=== PATIENT | male | born 1970 | race Caucasian/White ===

== ENCOUNTER 2018-08-28 06:46 | Emergency (ER) | payer MEDICAID ==
[~2018-08-28] VITALS: Ht 170.2 cm; Wt 60.2 kg
[~2018-08-28 06:46] MED LIST: BENA5TAB6 PO
[2018-08-28 06:49] VITALS: BP 199/119
[2018-08-28] MEDS ORDERED: proparacaine 0.5% ophthalmic drops 15ml EACHEYE ONE (07:00)
[2018-08-28] MEDS ORDERED: HYDR-3965 PO (07:23)
[2018-08-28] MEDS ORDERED: ciprofloxacin 0.3% 2.5ml ophthalmic solution RIGHTEYE SCH (08:00)
== END 2018-08-28 07:40 | disposition home or self-care (01) ==
LOC: ER 06:47
DX: T15.01XA Foreign body in cornea, right eye, initial encounter (principal); I10 Essential (primary) hypertension; F17.210 Nicotine dependence, cigarettes, uncomplicated; Z79.899 Other long term (current) drug therapy; W45.8XXA Other foreign body or object entering through skin, initial encounter; Y93.89 Activity, other specified; Y92.89 Other specified places as the place of occurrence of the external cause; Y99.8 Other external cause status
CPT/HCPCS: 65222; 99284

== ENCOUNTER 2024-05-11 08:05 | Emergency (ER) | payer MEDICAID, OTHER ==
[~2024-05-11] VITALS: Ht 175.3 cm; Wt 70.5 kg
[~2024-05-11 08:05] MED LIST changes: +BENA5TAB26 PO; -BENA5TAB6 PO
[2024-05-11 08:17] VITALS: BP 186/112; PULSE 82; RESP 14; O2SAT 96
== END 2024-05-11 08:42 | disposition home or self-care (01) ==
LOC: ER 08:06
DX: I10 Essential (primary) hypertension (principal); F15.90 Other stimulant use, unspecified, uncomplicated; Z79.899 Other long term (current) drug therapy
CPT/HCPCS: 99283

== ENCOUNTER 2025-06-03 12:56 | Emergency (ER) | payer SELFPAY ==
[~2025-06-03] VITALS: Ht 170.2 cm; Wt 66.9 kg
[2025-06-03 13:01] VITALS: TEMP 98.5
[2025-06-03 13:32] LABS: MEAN PLATELET VOLUME 8.1 FL (7.4-10.4); RED CELL DISTRIBUTION WIDTH 14.6 % (11.5-14.5)
[2025-06-03 13:47] LABS: CREATININE 1.04 MG/DL (0.60-1.10); TOTAL CARBON DIOXIDE 27.8 MMOL/L (24-32); eCRCL 74 ML/MIN; eGFR 74 ML/MIN
--- NOTE | 2025-06-03 14:03 | RADIOLOGY REPORT ---
History: inguinal hernia Comparison Study: None Technique: Serial axial images were performed through pelvis then reformatted in sagittal and coronal planes. Radiation Dose : CT Dose: CTDI volume is 11.4 mGy. Dose-length product is 243 mGy*cm Findings: Visualized bowel: Small bowel and colon are normal in caliber and distribution. The appendix is not visualized; however, no secondary findings of acute appendicitis identified. Ascites: Absent Lymphadenopathy: No pelvic or mesenteric lymphadenopathy. Pelvis Wall and Mesentery: Left inguinal hernia containing loops of bowel. No evidence of strangulati on at this time . Pelvic Organs: Prostate gland is enlarged. Musculoskeletal: No aggressive focal bony lesions, acute fractures or dislocation. Bladder: The bladder wall is thickened. There is a small droplet of air with in the bladder raising q uestion of prior catheterization. IMPRESSION: 1. .Left inguinal hernia containing large amount of bowel. There is no evidence of bowel obstruction or strangulation at this time. 2. Thickened bladder keller either due to bladder outlet obstruction from enlarged prostate and/ or cy stitis. END IMPRESSION:
--- NOTE | 2025-06-03 14:30 | Physician Documentation ---
History of Present Illness Chief Complaint: Abdominal Pain Stated Complaint: UNABLE TO URINATE Time Seen by MD: 14:01 Primary Medical Doctor: None HPI 54 yom h/o chronic inguinal hernia, urinary retention p/w abdominal pain. He was seen a few weeks ago for urinary retention, had colon placed at [facility]. Had another catheter replaced last week at [facility]. Has since pulled out his catheter. Now c/o increasing abdominal pain. His hernia does not bother him. Medication Reconciliation Allergies: Coded Allergies: No Known Allergies (Unverified , 09/29/14) Scheduled Benazepril HCl (Benazepril HCl), 2 TAB PO DAILY Past Medical History Past Medical History: Hypertension, MRSA Abscess Past Surgical History: other Alcohol Use: None Drug Use: methamphetamine Lives In: Home Occupation: employed Review of Systems All Other Systems at this time: Reviewed and Negative Constitutional: Reports: chills; Denies: fever Respiratory: Denies: shortness of breath, SOB with exertion Cardiovascular: Denies: chest pain Gastrointestinal: Reports: abdominal pain, nausea; Denies: vomiting, diarrhea, constipated, melena Genitourinary: Denies: flank pain Physical Exam Vital Signs: RN Vital Signs have been reviewed: Yes, Temperature: 98.5, Source: Temporal, Heart Rate: 95, Respiratory Rate: 21, BP: 184/112, Pulse Oximetry: 96, Weight: 66.900 Oxygen Flow Rate: 0 Physical Exam non toxic pulm ctab abdomen soft, suprapubic ttp neuro awake alert oriented. Progress Progress Note colon placed 500ml output Results/Orders Reviewed/noted all lab results: Yes (ua with gross infection) Results/Orders Vital Signs 06/03/25 06/03/25 13:01 14:18 Temp 98.5 Pulse 93 95 Resp 16 21 B/P (MAP) 156/96 184/112 (136) Pulse Ox 99 96 O2 Flow Rate 0 Laboratory Tests Test 06/03/25 13:24 06/03/25 14:10 White Blood Count 18.1 H Red Blood Count 4.50 L Hemoglobin 13.7 L Hematocrit 41.1 L Mean Corpuscular Volume 91.2 Mean Corpuscular Hemoglobin 30.5 Mean Corpuscular Hemoglobin Concent 33.4 Red Cell Distribution Width 14.6 H Platelet Count 386 Mean Platelet Volume 8.1 Neutrophils (%) (Auto) 85.2 H Lymphocytes (%) (Auto) 6.6 L Monocytes (%) (Auto) 7.3 Eosinophils (%) (Auto) 0.7 Basophils (%) (Auto) 0.2 Neutrophils # (Auto) 15.4 H Lymphocytes # (Auto) 1.2 Monocytes # (Auto) 1.3 H Eosinophils # (Auto) 0.1 Basophils # (Auto) 0.0 CBC Comment Sodium Level 134 L Potassium Level 3.5 Chloride Level 102 Carbon Dioxide Level 27.8 Anion Gap 4 L Blood Urea Nitrogen 19 H Creatinine 1.04 Estimated GFR/1.73 m2 74 BUN/Creatinine Ratio 18.3 Glucose Level 103 Calcium Level 8.5 Total Bilirubin 1.1 H Aspartate Amino Transf (AST/SGOT) 35 Alanine Aminotransferase (ALT/SGPT) 38 Alkaline Phosphatase 84 Total Protein 7.6 Albumin 2.9 L Globulin 4.7 H Albumin/Globulin Ratio 0.6 L Lipase 60 Chemistry Comments Urine Comment EKG/XRAY/CT/US/VASC/MRI CT : Impression CT abd pelvis no free fluid, enhanced bladder wall. No stone Medical Decision Making Differential Dx:Considerations: Include: Angina/NE, Appendicitis, Cholelithasis Departure Disposition: HOME / SELF CARE / HOMELESS Impression: Primary Impression: Pyelonephritis Additional Impression Text presents today with urinary retention. Elevated WBC. Vitals with mild tachycardia. Suspect early pyelo. Relief of pain with colon. Additional Instructions: You have a bladder infection. It should improve with antiobiotics and drainage with the catheter. Take your antibiotics starting tomorrow at lunch time to be taken every 6 hours. Return for fever or worsening abdominal pain. Referrals: MALIK JACOBS MD, CHRISTOPHER E MD Prescriptions Cephalexin (Cephalexin) 500 Mg Capsule 1 CAP PO Q6H for 10 Days, #40 CAP Prov: MEGAN MELO MD 06/03/25 Signature Scribe Signature: na Attestation: MEGAN Kauffman MD Jun 03, 2025 14:30
[2025-06-03 14:35] LABS: LEUKOCYTE ESTERASE ,URINE MODERATE (Neg); NITRITES, URINE POSITIVE (Neg); OCCULT BLOOD,URINE LARGE (Neg)
[2025-06-03 14:39] LABS: UA COLLECTION TYPE NON-SPECIFIED
[2025-06-03 14:40] LABS: MUCUS STRANDS NONE SEEN /LPF (Neg); SQUAMOUS EPITHELIAL CELL,UR NONE SEEN /LPF (FEW)
[2025-06-03] MEDS: normal saline 1000ml 1,000 ML IV ONE (15:47)
[2025-06-03] MEDS: LidoCAINE 2% Topical Jelly 11mL syringe (UROJET) TOP ONE (15:47)
[2025-06-03] MEDS: CefTRIAXone 2gm/D5W 50ml BAG 50 ML IV ONE (15:47)
[2025-06-03] MEDS ORDERED: CEPH500C81 PO (16:30)
[2025-06-03 18:19] VITALS: BP 198/103; PULSE 88; RESP 16; O2SAT 98
== END 2025-06-03 18:22 | disposition home or self-care (01) ==
LOC: ER 12:57
DX: N12 Tubulo-interstitial nephritis, not specified as acute or chronic (principal); I10 Essential (primary) hypertension; F15.90 Other stimulant use, unspecified, uncomplicated; Z79.899 Other long term (current) drug therapy
CPT/HCPCS: 36415; 51702; 72192; 80053; 81001; 83605; 83690; 85025; 87040; 87088; 96365; 99285; A4314; J0696; J7030; A4358; A5200

== ENCOUNTER 2025-06-13 18:44 | Emergency (ER) | payer OTHER ==
[~2025-06-13] VITALS: Ht 170.2 cm; Wt 63.0 kg
[~2025-06-13 18:44] MED LIST changes: +CEPH500C81 PO
--- NOTE | 2025-06-13 18:50 | Physician Documentation ---
History of Present Illness ~ Stated Complaint: "I NEED TO HAVE ANOTHER CATHETER PUT IN" Time Seen by MD: 19:07 OK to notify your PCP?: Yes Primary Medical Doctor: None Source: patient, RN/, RN notes reviewed, old records Mode of Arrival: POV Exam Limitations: no limitations HPI 54-year-old male returns for urinary retention. He states that he had a Mckenzie catheter placed 10 days ago here for urinary retention and pyelonephritis. He took his catheter out 2 days ago but now has not been able to urinate since this morning. He does not have a urologist yet. HPI by Dr. Hensley: BED 6 This patient is a 54 y/o male who presents to ED with chief complaint of trouble urinating. Patient states that he believes this may be due to his hernia, as it has been coming out every time he tries to urinate and causes him severe pain. Patient states he did urinate normally this morning. He also notes history of a testicular mass; states that he was seen for it by a urologist who told him he likely had cancer, however he never had it biopsied. Patient states that he was then seen at [facility], where he was told he had a left sided inguinal hernia. Patient notes that he does have a history of urinary retention, stating he previously had a catheter which was removed two days ago. Patient denies any other associated symptoms at this time. Patient denies any other alleviating or exacerbating factors. Medication Reconciliation Allergies: Coded Allergies: No Known Allergies (Unverified , 06/13/25) Scheduled Benazepril HCl (Benazepril HCl), 2 TAB PO DAILY Cephalexin (Cephalexin), 1 CAP PO Q6H Sulfamethoxazole/Trimethoprim (Bactrim Ds Tablet), 1 TAB PO Q12H Past Medical History Past Medical History: Hypertension, Hernia, MRSA Abscess Past Surgical History: other Other Past Surgical History: Splenectomy Smoking Status: Never smoker Alcohol Use: None Drug Use: methamphetamine Lives In: Home Occupation: employed Review of Systems All Other Systems at this time: Reviewed and Negative Physical Exam Vital Signs: RN Vital Signs have been reviewed: Yes Pulse Oximetry Reflects: adequate oxygenation Physical Exam General: Alert, no distress. HEENT: No injection, moist mucous membranes. Neck: Full range of motion. Respiratory: No respiratory distress, equal chest rise and fall. Chest: No accessory muscle use. Cardiovascular: Regular rate and rhythm. Gastrointestinal: Nondistended. Extremities: Normal range of motion, no deformity. Neurologic: Oriented x4. Psychiatric: Normal mood and affect. Skin: Normal color, warm and dry. EXAM BELOW BY DR. HENSLEY: General: The patient is well developed, well nourished, nontoxic appearing and is in no acute distress. Skin: [place], warm and dry with no rashes. HEENT: Head was normocephalic and atraumatic. Eyes - pupils equal, round, reactive to light and accommodation. Extraocular movements were intact. Conjunctivae were nonicteric. The mouth and oropharynx were clear with moist mucous membranes. There were no pharyngeal exudates or erythema. Neck: Supple and nontender. There was no jugular venous distention, lymphadenopathy, thyromegaly or masses. Chest: Clear to auscultation bilaterally without wheezes, rales or rhonchi. No accessory muscle use. No dullness to percussion. Heart: Rate regular and rhythmic. S1, S2. No murmurs. Palpation of the chest wall was normal. No rubs or thrills. Abdomen: Abdomen otherwise soft, nontender and nondistended. Positive bowel evelin nds. No guarding or rebound. No hepatosplenomegaly or palpable masses. : Large inguinal hernia to left testicle, reducible. Extremities: No cyanosis, clubbing or edema. The patient moves all extremities. Pulses were equal and symmetric. Neurologic: Motor and sensation grossly intact. A & O x4. Psychologic: The patient was oriented to person, place and time. Progress Progress Note 8:[address] Jacobs was at bedside with the patient outpatient workup Results/Orders Reviewed/noted all lab results: Yes Results/Orders Orders - AIDEN HENSLEY MD Us Testic/W/Duplex (06/13/25 19:08) Completed Orders - AIDEN HENSLEY MD Us Testic/W/Duplex (06/13/25 19:08) Sulfamethox/Trimetho. Ds Tab (Septra Ds (06/13/25 21:15) * (A) Mckenzie- Protocol * Q12H@,19 (06/13/25 21:14) Lidocaine 2% Jelly 11ml Syr (Glydo-Lidoc (06/13/25 21:15) Medications Received in ER Medications (Trade) Dose Ordered Sig/Yazan Route PRN Reason Start Time Stop Time Status Last Admin Dose Admin (Septra DS tab) 1 tab ONCE ONCE PO 06/13/25 21:15 06/13/25 21:16 DC 06/13/25 21:26 1 TAB (GLYDO-Lidocaine 2% Topical Jelly 11mL syringe) 1 applic ONCE ONCE TOP 06/13/25 21:15 06/13/25 21:17 DC 06/13/25 21:26 1 APPLIC Vital Signs 06/13/25 06/13/25 06/13/25 06/13/25 18:45 19:00 20:35 21:50 Temp 97.9 98.1 Pulse 101 84 80 Resp 16 16 18 18 B/P (MAP) 186/110 157/93 (114) 126/80 Pulse Ox 99 99 99 O2 Flow Rate 0 Laboratory Tests Test 06/13/25 20:24 Urine Specimen Description Non-specified Urine Color Yellow Urine Clarity Cloudy Urine pH 6.5 Urine Specific [place] 1.020 Urine Protein Trace Urine Glucose (UA) 100 H Urine Ketones Negative Urine Occult Blood Trace-intact Urine Nitrite Negative Urine Bilirubin Negative Urine Urobilinogen 0.2 Urine Leukocyte Esterase Moderate H Urine RBC 3-10 Urine WBC 30-50 H Urine Squamous Epithelial Cells Few Urine Bacteria 1+ Urine Mucus Few Urine Culture Indicated Indicated Volume Urine Centrifuged 10 ml Urine Comment Microbiology Date/Time Source Procedure Growth Status 06/13/25 20:38 Urine Nonspecified Urine Culture - Preliminary Culture received. Resulted Re-Evaluation Re-Evaluation : Re-Evaluation: Improved Progress Patient was seen and examined. Patient is given reassurance. Patient had multiple issues. One is urinary retention in part due to chronic inguinal hernia and pain. The patient's other issue is his left inguinal hernia that is generally reducible. We are unable to reduce it in the ER but his pain is much improved he states usually at home he is able to get it back in the problem for him is that he still has pain and can not urinate. There was 3rd issue of a mass that he thought resolved but apparently he has had this testicular mass for years that he has not followed up. Patient saw our general surgeon we will schedule surgery on the outpatient basis and will follow up with Urology regarding potential testicular mass. Cat scan showed chronic cystitis and bladder wall thickening consistent with recurrent episodes of inflammation. Patient's UA came back again positive for a UTI. Patient is leukocyte esterase is moderate 3-10 RBCs and 30-50 WBCs. Patient is given Bactrim and a prescription for the same. Outpatient information was provided for the patient. EKG/XRAY/CT/US/VASC/MRI Ultrasound : Interpreted By: radiologist Ultrasound of: testicular Impression [address] [address] ULTRASOUND Patient: DAISY WAGONER Medical Record: [id number] JOSEPH MOUNT STERLING : 1970, Age: 54 Sex: Male Location: ER Patient Status: [facility] ER Service Date/Time: 06/13/251907 Ordering Physician: AIDEN HENSLEY MD Exam: US TESTIC/W/DUPLEX SCROTAL ULTRASOUND REASON FOR EXAM: painful testicle COMPARISON: None TECHNIQUE: Real-time sector scans and duplex color flow Doppler imaging of the scrotal contents was performed. FINDINGS: The right testicle measures 3.4 x 2.5 x 3.3 cm. Expected color and spectral doppler flow is identified within the right testicle. There is a 3.1 x 4.0 x 3.2 cm heterogeneously hypoechoic and vascular right testicular mass. The left testicle measures 4.1 x 2.3 x 3.0 cm. There is prominence of the mediastinum testis, nonspecific. There is a heterogeneously hypoechoic 0.5 cm mass within the right epididymis that appears to extend from the testicular mass. The right epididymis is hyperemic. The left epididymis is within normal limits and without hyperemia. No varicocele is identified. There is small bilateral hydrocele, left greater than right. There is a large amount of bowel herniating into the scrotum making evaluation difficult. IMPRESSION: Right testicular mass extending into the epididymis. Small bilateral hydrocele, left greater than right. Large amount of bowel herniating into the scrotum making evaluation difficult. Electronically Signed by:CALIXTO BORREGO MD Date & Time: 06/13/252017 Dictated by: CALIXTO BORREGO MD Dictation date and time: 06/13/252017 Primary Care Provider: NO PRIMARY CARE PROVIDER cc: AIDEN HENSLEY MD ~ EDMD DR. HENSLEY REVIEWED IMAGES AND AGREES WITH ABOVE FINDINGS. Medical Decision Making Additional info obtained from: old records Genital Diff Dx:Considerations: Include: Abscess, Balanitis, Balanoposthitis, Cellulitis, Epididymitis, Hydrocele, Inguinal hernia, Prostatitis, Urinary retention, Urethritis, UTI, Other Departure Time of Disposition: 20:09 Disposition: HOME / SELF CARE / HOMELESS Impression: Primary Impression: Urinary retention Additional Impressions: Testicular mass Left inguinal hernia Acute urinary tract infection Condition: Stable Discharge Instructions: Acute Urinary Retention, Male, Inguinal Hernia, Adult Additional Instructions: Please follow up with surgeon, Dr. Jacobs regarding your hernia, and urologist, Dr. Gregory for your testicular mass. Referrals: NO PRIMARY CARE PROVIDER (PCP) MALIK JACOBS MD, TIFFANY A MD Prescriptions Sulfamethoxazole/Trimethoprim (Bactrim Ds Tablet) 800 Mg-160 Mg Tablet 1 TAB PO Q12H for 10 Days, #20 TAB Prov: AIDEN HENSLEY MD 06/13/25 Education Educated: Patient Educated regarding: diagnosis, treatment, need for follow up Additional Comment Medical Screen Exam This patient recieved a medical screening examination. After reviewing the mike courtney's medical complaints with presenting symptoms and performing an appropriate physical examination, it was determined that no immediate life- threatening emergency medical condition is present. This individual is also not a women having contractions. Signature Scribe Signature: Scribed for Aiden Hensley MD by Vanda Coffey . 06/13/25 19:58 Attestation: The note accurately reflects work and decisions made by me.Aiden Hensley MD 06/13/25 21:17 PATRICA GUZMÁN [employer] Jun 13, 2025 18:50 AIDEN HENSLEY MD Jun 13, 2025 19:59
--- NOTE | 2025-06-13 20:20 | RADIOLOGY REPORT ---
SCROTAL ULTRASOUND REASON FOR EXAM: painful testicle COMPARISON: None TECHNIQUE: Real-time sector scans and duplex color flow Doppler imaging of the scrotal contents was performed. FINDINGS: The right testicle measures 3.4 x 2.5 x 3.3 cm. Expected color and spectral doppler flow is identifie d within the right testicle. There is a 3.1 x 4.0 x 3.2 cm heterogeneously hypoechoic and vascular ri ght testicular mass. The left testicle measures 4.1 x 2.3 x 3.0 cm. There is prominence of the mediastinum testis, nonspec ific. There is a heterogeneously hypoechoic 0.5 cm mass within the right epididymis that appears to extend from the testicular mass. The right epididymis is hyperemic. The left epididymis is within normal muj[place] its and without hyperemia. No varicocele is identified. There is small bilateral hydrocele, left greater than right. There is a large amount of bowel herniating into the scrotum making evaluation difficult. IMPRESSION: Right testicular mass extending into the epididymis. Small bilateral hydrocele, left greater than right. Large amount of bowel herniating into the scrotum making evaluation difficult.
[2025-06-13 20:31] LABS: LEUKOCYTE ESTERASE ,URINE MODERATE (Neg); NITRITES, URINE NEGATIVE (Neg); OCCULT BLOOD,URINE TRACE-INTACT (Neg)
[2025-06-13 20:33] LABS: UA COLLECTION TYPE NON-SPECIFIED
[2025-06-13 20:37] LABS: MUCUS STRANDS FEW /LPF (Neg); SQUAMOUS EPITHELIAL CELL,UR FEW /LPF (FEW)
[2025-06-13] MEDS ORDERED: SULF1TAB49 PO (21:15)
[2025-06-13] MEDS: LidoCAINE 2% Topical Jelly 11mL syringe (UROJET) TOP ONE (21:26)
[2025-06-13] MEDS: sulfamethoxazole/trimethoprim DS (800/160mg) tablet PO ONE (21:26)
[2025-06-13 21:50] VITALS: BP 126/80; PULSE 80; RESP 18; TEMP 98.1; O2SAT 99
== END 2025-06-13 21:54 | disposition home or self-care (01) ==
LOC: ER 18:45
DX: R33.9 Retention of urine, unspecified (principal); K40.90 Unilateral inguinal hernia, without obstruction or gangrene, not specified as recurrent; N43.3 Hydrocele, unspecified; N39.0 Urinary tract infection, site not specified; I10 Essential (primary) hypertension; F15.90 Other stimulant use, unspecified, uncomplicated; Z79.899 Other long term (current) drug therapy
CPT/HCPCS: 51702; 76870; 81001; 87088; 93976; 99284; A4314; A4338; A4358; A5200; C1758

== ENCOUNTER 2025-06-24 04:45 | Emergency (ER) | payer OTHER ==
[~2025-06-24] VITALS: Ht 170.2 cm; Wt 60.0 kg
[~2025-06-24 04:45] MED LIST changes: -CEPH500C81 PO; +SULF1TAB49 PO
--- NOTE | 2025-06-24 06:22 | Physician Documentation ---
History of Present Illness General Chief Complaint: Urinary Symptoms Stated Complaint: URINARY COMPLICATIONS Time Seen by MD: 06:06 Primary Medical Doctor: None Mode of Arrival: POV, Ambulatory History of Present Illness Initial Comments 54-year-old male returns for urinary retention. He states that he had a Mckenzie catheter placed 10 days ago here for urinary retention and UTI. He took his catheter out 4 days ago but now has not been able to urinate since this morning. He does not have a urologist yet. This patient is a 54 y/o male who presents to ED with chief complaint of trouble urinating. Patient states that he believes this may be due to his hernia, as it has been coming out every time he tries to urinate and causes him severe pain. Patient states he did urinate normally this morning. He also notes history of a testicular mass; states that he was seen for it by a urologist who told him he likely had cancer, however he never had it biopsied. Patient states that he was then seen at [facility], where he was told he had a left sided inguinal hernia. Patient notes that he does have a history of urinary retention, stating he previously had a catheter which he removed 4 days ago. Patient denies any other associated symptoms at this time. Patient denies any other alleviating or exacerbating factors. Medication Reconciliation Allergies: Coded Allergies: No Known Allergies (Unverified , 06/13/25) Scheduled Benazepril HCl (Benazepril HCl), 2 TAB PO DAILY Discontinued Medications Sulfamethoxazole/Trimethoprim (Bactrim Ds Tablet), 1 TAB PO Q12H Discontinued Reason: Auto Discontinued Past Medical History Past Medical History: Hypertension, Hernia, MRSA Abscess Past Surgical History: other Other Past Surgical History: Splenectomy Smoking: Cigarettes Alcohol Use: None Drug Use: methamphetamine Lives In: Home Occupation: employed Review of Systems ROS Constitutional: Denies chills, fatigue, fever, weight gain or weight loss. HEENT: Denies hearing loss, sinus pressure or visual changes. Respiratory: Denies cough, shortness of breath or wheezing. Cardiovascular: Denies chest pain, pain while walking (claudication), edema or palpitations. Gastrointestinal: Denies abdominal pain, blood in stool, constipation, diarrhea, heartburn, loss of appetite, nausea or vomiting. Genitourinary: Urinary retention and dysuria. Metabolic/Endocrine: Denies cold intolerance, heat intolerance, excessive thirst (polydipsia) or excessive hunger (polyphagia). Neurological: Denies dizziness, extremity numbness, extremity weakness, headaches, seizures or tremors. Psychiatric: Denies anxiety or depression. Integumentary: Denies breast discharge, breast lump, hives, mole change(s), rash or skin lesion. Musculoskeletal: Denies back pain, joint pain, joint swelling or neck pain. Hematologic: Denies easily bleeding, easily bruises, lymphedema or issues with blood clots. Immunologic: Denies food allergies or seasonal allergies. Physical Exam Physical Exam Vital Signs: Temperature: 98.1, Source: Temporal, Heart Rate: 82, Respiratory Rate: 18, Pulse Oximetry: 99, Weight: 60.000 Oxygen Flow Rate: 0 Physical Exam Physical Exam Vitals and nursing note reviewed. Constitutional: General: Patient is awake, alert, oriented x 4 in no acute distress and well appearing. Speech is clear and lucid. Appearance: Normal appearance. Patient is not ill-appearing, toxic-appearing or diaphoretic. HENT: Head: Normocephalic and atraumatic. Mouth/Throat: Mouth: Mucous membranes are moist. Pharynx: Oropharynx is clear. Eyes: General: No scleral icterus. Extraocular Movements: Extraocular movements intact. Pupils: Pupils are equal, round, and reactive to light. Neck: Supple, no Kernig or Brudzinski sign. Cardiovascular: Rate and Rhythm: Normal rate and regular rhythm. Heart sounds: No murmur heard. Pulmonary: Effort: No respiratory distress. Breath sounds: No wheezing, rhonchi or rales. Abdominal: General: Left sided inguinal hernia, incarcerated. Patient thinks he may be able to reduce it. Palpations: There is no fluid wave, hepatomegaly or mass. Tenderness: There is no abdominal tenderness. There is no guarding. Musculoskeletal: General: No swelling or deformity. Skin: Coloration: Skin is not jaundiced. Findings: No erythema or rash. Neurological: Mental Status: Patient is alert. Progress Results/Orders Results/Orders Orders - NETTA VAUGHAN MD Bladder Scan (06/24/25 ) * (A) Mckenzie- Protocol * Q12H@07,19 (06/24/25 06:23) Completed Orders - NETTA VAUGHAN MD Lidocaine 2% Jelly 11ml Syr (Glydo-Lidoc (06/24/25 06:20) Lidocaine 2% Jelly 11ml Syr (Glydo-Lidoc (06/24/25 06:25) Medications Received in ER Medications (Trade) Dose Ordered Sig/Yazan Route PRN Reason Start Time Stop Time Status Last Admin Dose Admin (GLYDO-Lidocaine 2% Topical Jelly 11mL syringe) 1 applic ONCE ONCE TOP 06/24/25 06:20 06/24/25 06:21 DC 06/24/25 06:23 1 APPLIC Vital Signs 06/24/25 06/24/25 06/24/25 04:53 05:33 06:43 Temp 98.1 98.4 Pulse 82 77 Resp 18 15 B/P (MAP) 163/90 (114) Pulse Ox 99 97 O2 Flow Rate 0 0 Laboratory Tests Test 06/24/25 06:30 Urine Specimen Description Mckenzie cath Urine Color Yellow Urine Clarity Cloudy Urine pH 6.5 Urine Specific [place] 1.020 Urine Protein Trace Urine Glucose (UA) 100 H Urine Ketones Negative Urine Occult Blood Trace-intact Urine Nitrite Positive H Urine Bilirubin Negative Urine Urobilinogen 0.2 Urine Leukocyte Esterase Moderate H Urine RBC 0-2 Urine WBC Tntc H Urine Squamous Epithelial Cells None seen Urine Bacteria 2+ Urine Culture Indicated Indicated Volume Urine Centrifuged 10 ml Urine Comment Medical Decision Making Findings Bladder scan showed greater than 400 cc residual. We are going to put a Mckenzie catheter in. The patient is attempting to reduce his inguinal hernia on the left. Urinalysis is consistent with infection. Microbiology report from 06/13/2025 showed mixed loi and therefore sensitivities were not performed. 7:38 a.m.: The patient has apparently eloped from the department. Of note, the patient apparently left a 50 dollar bill on the [employer]. I gave this to our nursing accounting clerks supervisor. Departure Disposition: 07 LEFT AWOL/ELOPED Impression: Primary Impression: Urinary retention Additional Impressions: Eloped from emergency department UTI (urinary tract infection) Condition: Stable Referrals: NO PRIMARY CARE PROVIDER (PCP) Signature Scribe Signature: . Attestation: . NETTA VAUGHAN MD Jun 24, 2025 06:22
[2025-06-24] MEDS: LidoCAINE 2% Topical Jelly 11mL syringe (UROJET) TOP ONE ×2 (06:23→06:45)
[2025-06-24 06:43] VITALS: BP 163/90; PULSE 77; RESP 15; TEMP 98.4; O2SAT 97
[2025-06-24 06:43] LABS: LEUKOCYTE ESTERASE ,URINE MODERATE (Neg); NITRITES, URINE POSITIVE (Neg); OCCULT BLOOD,URINE TRACE-INTACT (Neg)
[2025-06-24 06:49] LABS: UA COLLECTION TYPE FOLEY CATH
[2025-06-24 06:51] LABS: SQUAMOUS EPITHELIAL CELL,UR NONE SEEN /LPF (FEW)
== END 2025-06-24 07:41 | disposition left against medical advice (07) ==
LOC: ER 04:45
DX: N39.0 Urinary tract infection, site not specified (principal); I10 Essential (primary) hypertension; F15.90 Other stimulant use, unspecified, uncomplicated
CPT/HCPCS: 51702; 51798; 81001; 87088; 87186; 99284; A4314

== ENCOUNTER 2025-07-23 01:42 | Emergency (ER) | payer SELFPAY ==
[~2025-07-23] VITALS: Ht 170.2 cm; Wt 73.5 kg
[~2025-07-23 01:42] MED LIST changes: -SULF1TAB49 PO
[2025-07-23 01:49] VITALS: PULSE 85; TEMP 97.1
[2025-07-23] MEDS: LidoCAINE 2% Topical Jelly 11mL syringe (UROJET) TOP ONE (02:20)
--- NOTE | 2025-07-23 02:22 | Physician Documentation ---
History of Present Illness General Chief Complaint: Urinary Symptoms Stated Complaint: CATHITER ISSUES Time Seen by MD: 02:13 Primary Medical Doctor: None History of Present Illness Initial Comments This is a 54-year-old gentleman who had an indwelling Mckenzie catheter for acute urinary retention, pulled it out a month ago on his own because hospitalist coming out of it presents today with a request of Mckenzie catheter placement due to acute urinary retention. He feels that his hernia is interfering with his ability to urinate. He does report that he has large hernia in his scrotum. Denies any pain in his abdomen. Denies chest pain or difficulty breathing. Denies any fever or chills. Does report pain with the urination. Medication Reconciliation Allergies: Coded Allergies: No Known Allergies (Unverified , 07/23/25) Scheduled Benazepril HCl (Benazepril HCl), 2 TAB PO DAILY Past Medical History Past Medical History: Hypertension, Hernia, MRSA Abscess Past Surgical History: other Other Past Surgical History: Splenectomy Smoking: Cigarettes Alcohol Use: None Drug Use: methamphetamine Lives In: Home Occupation: employed Review of Systems ROS 10 point review of systems was performed and unless noted above in HPI is negative for acute process/complaint. Physical Exam Physical Exam Vital Signs: Temperature: 97.1, Source: Temporal, Heart Rate: 85, Respiratory Rate: 18, BP: 168/99, Pulse Oximetry: 98, Weight: 73.500 Physical Exam Physical examination: GENERAL: Awake, alert, oriented, GCS 15, no apparent distress, non-toxic appearing, answers questions, follows commands appropriately. HEENT: Atraumatic, normocephalic, pupils equal, extraocular muscles intact Active gross movements, sclerae anicteric, mucus membranes moist, no stridor. NECK: Midline, no JVD CARDIOVASCULAR: Good skin perfusion without evidence of pallor, mottling. PULMONARY: Nonlabored, symmetric chest rise, no audible wheezing, no accessory muscle use, no respiratory distress, speaking in full sentences. GASTROINTESTINAL: Not distended. NEUROLOGIC: Lucid with normal mental status. Normal facial symmetry. Moves all extremities symmetrically and with purpose. No truncal ataxia. Speech is fluid without evidence of dysarthria or aphasia, no focal deficits appreciated. EXTREMITIES: Acute deformities Skin: warm, dry PSYCHIATRIC: Normal affect, normal insight, normal concentration. Focused exam: [] Progress Results/Orders Results/Orders Orders - JAVIER BOOGIE DO * (A) Mckenzie- Protocol * Q12H@07,19 (07/23/25 02:17) Cult Urine + [address] (07/23/25 02:45) Completed Orders - JAVIER BOOGIE DO Lidocaine 2% Jelly 11ml Syr (Glydo-Lidoc (07/23/25 02:20) Cbc/Diff (07/23/25 02:17) MG (07/23/25 02:17) CMP (07/23/25 02:17) Ethanol (07/23/25 02:18) Drug Screen, Urine (07/23/25 02:18) Ua W/Microscopic, Cult If Ind (07/23/25 01:48) Medications Received in ER Medications (Trade) Dose Ordered Sig/Yazan Route PRN Reason Start Time Stop Time Status Last Admin Dose Admin (GLYDO-Lidocaine 2% Topical Jelly 11mL syringe) 1 applic ONCE ONCE TOP 07/23/25 02:20 07/23/25 02:21 DC 07/23/25 02:20 1 APPLIC Vital Signs 07/23/25 07/23/25 01:49 02:34 Temp 97.1 Pulse 85 Resp 18 14 B/P (MAP) 168/99 Pulse Ox 98 Laboratory Tests Test 07/23/25 01:48 07/23/25 02:27 Urine Specimen Description Cln catch midstream Urine Color Yellow Urine Clarity Cloudy Urine pH 8.0 Urine Specific [place] 1.015 Urine Protein 30 H Urine Glucose (UA) Negative Urine Ketones Negative Urine Occult Blood Small Urine Nitrite Negative Urine Bilirubin Negative Urine Urobilinogen 0.2 Urine Leukocyte Esterase Large H Urine RBC 3-10 Urine WBC Tntc H Urine Squamous Epithelial Cells Few Urine Bacteria 4+ Urine Culture Indicated Indicated Volume Urine Centrifuged 10 ml Urine Comment Urine Opiates Screen Negative Urine Methadone Screen Negative Urine Fentanyl Screen Negative Urine Barbiturates Screen Negative Urine Phencyclidine Screen Negative Urine Amphetamines Screen Positive Urine Benzodiazepines Screen Negative Urine Cocaine Screen Negative Urine Cannabinoids Screen Negative Drug Screen Comment White Blood Count 6.1 Red Blood Count 4.33 L Hemoglobin 13.3 L Hematocrit 39.3 L Mean Corpuscular Volume 90.8 Mean Corpuscular Hemoglobin 30.8 Mean Corpuscular Hemoglobin Concent 33.9 Red Cell Distribution Width 14.0 Platelet Count 279 Mean Platelet Volume 8.6 Neutrophils (%) (Auto) 57.5 Lymphocytes (%) (Auto) 22.7 Monocytes (%) (Auto) 14.4 H Eosinophils (%) (Auto) 4.6 Basophils (%) (Auto) 0.8 Neutrophils # (Auto) 3.5 Lymphocytes # (Auto) 1.4 Monocytes # (Auto) 0.9 Eosinophils # (Auto) 0.3 Basophils # (Auto) 0.0 CBC Comment Platelet Estimate Normal Large Platelets Few Red Blood Cell Morphology Normal Basophilic Stippling Sodium Level 139 Potassium Level 3.4 L Chloride Level 105 Carbon Dioxide Level 28.3 Anion Gap 6 L Blood Urea Nitrogen 21 H Creatinine 1.31 H Estimated GFR/1.73 m2 57 BUN/Creatinine Ratio 16.0 Glucose Level 92 Calcium Level 8.3 L Magnesium Level 2.0 Total Bilirubin 0.5 Aspartate Amino Transf (AST/SGOT) 30 Alanine Aminotransferase (ALT/SGPT) 40 Alkaline Phosphatase 81 Total Protein 6.8 Albumin 2.9 L Globulin 3.9 Albumin/Globulin Ratio 0.7 L Chemistry Comments Ethyl Alcohol Level < 10 Medical Decision Making Findings Facility Status: ED Holds, [facility] process The plan was discussed with the patient, who demonstrates clear understanding of the plan and is in agreement with the plan unless otherwise noted in the chart. All questions have been answered, all concerns were addressed unless otherwise documented. I was available throughout their ED stay for frequent reassessment and questions. Differential Diagnoses (considered and possible or likely): [Acute urinary retention secondary to enlarged prostate, less likely secondary to his hernia, urinary tract infection, pyelitis, pyelonephritis] ??Differential Diagnoses (considered and unlikely, not requiring evaluation currently): [Unlikely acute intra-abdominal process requiring surgical intervention] MDM Data Please see [facility] for the following: Independent Historians and external Records Review. Historian: [Patient] Independent Historians: ?[Record review] Medication Management: [Reviewed medication list] Social History and determinants: [Reviewed] Please see the body of the note for the following: Any independent interpretations of ECG, imaging studies. All vitals signs/haemodynamics, ordered tests were independently reviewed and interpreted by myself. Nursing triage complaint and vitals reviewed, additional nursing notes were reviewed as available and I agree unless otherwise noted or documented in contradiction in the chart Vital Signs: Independently reviewed Labs: Independently interpreted Imaging: Independently interpreted Old Medical Records: Independently reviewed, see HPI for relevant summary and information Pulse Oximetry: [98%] interpreted as [normal on room air] by me Additionally notably showing: [Hemodynamics reviewed. The patient isn't febrile, not tachycardic, no evidence of hypotension respiratory distress. Laboratory studies reviewed. CBC normal, no leukocytosis. Normal hemoglobin. Normal platelets. Chemistry shows ERIBERTO versus CKD with a mild creatinine elevation. Ethanol is negative. Urine drug screen is positive for methamphetamines. UA is obviously positive for urinary tract infection.] Tests considered but not ordered include: [Imaging has been considered, however he has no pain, no discoloration, hernias reducible] Social Determinants of Health Impact: Patient was evaluated in [facility] [place] to healthcare due to below par ratio of patient to medical providers. [] Comorbid Conditions Impacting Present Evaluation and Care/Treatment: [Known inguinal hernia] Management Discussions with other Healthcare Providers: [None] Treatment and Disposition Medication Management (Given or considered): []. See EMR for details Consideration for Hospitalization/Escalation/Deescalation of Care: Admission for observation has been considered, [however the patient is able to tolerate p.o., their symptoms are controlled, they are able to rely on oral medications, and their chief complaint/diagnosis can be managed on outpatient basis.] ?ED Course:?[No clinical deterioration] ?Shared decision making:?[Patient is hemodynamically stable for discharge home with follow with their primary care provider. [ ] Specific and cautious return precautions provided and discussed with full understanding. Any incidental findings were also discussed and follow up recommendations given. [] All questions answered. Patient/family were able to verbalize back return precautions. Patient/family agree to plan. Copies of imaging and laboratory studies were provided.] Code status:?FULL Please see the full Electronic Medical Record for full details of nursing documentation, medications list, other records of complete past medical history and conditions, vital signs, laboratory studies, and any radiologic study interpretations by radiologists. Portions of this note were completed using [employer] dictation software and as a result there may exist minor errors in spelling. I have reviewed elements of past family and social history and agree as included in note. Departure Disposition: HOME / SELF CARE / HOMELESS Impression: Primary Impression: Urinary retention Additional Impression: UTI (urinary tract infection) Condition: Stable Discharge Instructions: Urinary Tract Infection, Adult Referrals: NO PRIMARY CARE PROVIDER (PCP) Prescriptions Amox Tr/Potassium Clavulanate (Augmentin 875-125 Tablet) 1 Each Tablet 1 TAB PO Q12H for 14 Days, #28 TAB Prov: JAVIER BOOGIE DO 07/23/25 Education Educated: Patient Educated regarding: diagnosis, treatment, prognosis, need for follow up Signature Scribe Signature: No scribe Attestation: Date: Jul 23, 2025 Time: 02:21 This note accurately reflects clinical decisions, work performed by myself, Javier Boogie, JAVIER ESCALANTE DO Jul 23, 2025 02:21
[2025-07-23 02:32] LABS: LEUKOCYTE ESTERASE ,URINE LARGE (Neg); NITRITES, URINE NEGATIVE (Neg); OCCULT BLOOD,URINE SMALL (Neg)
[2025-07-23 02:39] LABS: UA COLLECTION TYPE CLN CATCH MIDSTREAM
[2025-07-23 02:42] LABS: MEAN PLATELET VOLUME 8.6 FL (7.4-10.4); RED CELL DISTRIBUTION WIDTH 14.0 % (11.5-14.5)
[2025-07-23 02:45] LABS: SQUAMOUS EPITHELIAL CELL,UR FEW /LPF (FEW)
[2025-07-23 02:47] LABS: CREATININE 1.31 MG/DL (0.60-1.10); ETHANOL < 10 MG/DL (<10); TOTAL CARBON DIOXIDE 28.3 MMOL/L (24-32); eCRCL 59 ML/MIN; eGFR 57 ML/MIN
[2025-07-23 03:03] LABS: URINE AMPHETAMINE SCREEN POSITIVE (Neg); URINE BARBITUATE SCREEN NEGATIVE (Neg); URINE BENZODIAZEPINES SCREEN NEGATIVE (Neg); URINE CANNABINOID SCREEN NEGATIVE (Neg); URINE COCAINE SCREEN NEGATIVE (Neg); URINE METHADONE SCREEN NEGATIVE (Neg); URINE OPIATE SCREEN NEGATIVE (Neg); URINE PHENCYCLIDINE SCREEN NEGATIVE (Neg)
[2025-07-23 03:05] LABS: PLATELET ESTIMATE NORMAL
[2025-07-23 03:08] LABS: LARGE PLATELETS FEW
[2025-07-23] MEDS ORDERED: AMOX-117 PO (03:38)
[2025-07-23 04:10] VITALS: BP 140/86; RESP 14; O2SAT 97
== END 2025-07-23 04:11 | disposition home or self-care (01) ==
LOC: ER 01:42
DX: R33.9 Retention of urine, unspecified (principal); N39.0 Urinary tract infection, site not specified; I10 Essential (primary) hypertension; F17.210 Nicotine dependence, cigarettes, uncomplicated; F15.90 Other stimulant use, unspecified, uncomplicated; Z79.899 Other long term (current) drug therapy
CPT/HCPCS: 36415; 51702; 80053; 80305; 80320; 81001; 83735; 85008; 85025; 87077; 87088; 87186; 99284; C1758

== ENCOUNTER 2025-07-31 23:34 | Emergency (ER) | payer OTHER ==
[~2025-07-31] VITALS: Ht 170.2 cm; Wt 70.9 kg
[~2025-07-31 23:34] MED LIST changes: +AMOX-117 PO
[2025-07-31 23:37] VITALS: TEMP 98
--- NOTE | 2025-07-31 23:49 | Physician Documentation ---
History of Present Illness ~ Chief Complaint: Urinary Retention Stated Complaint: REQUESTING CATHETER Time Seen by MD: 23:49 Primary Medical Doctor: None HPI Patient presents to the emergency room with acute urinary retention. History of urinary retention. On antibiotics for urinary tract infection. Medication Reconciliation Allergies: Coded Allergies: No Known Allergies (Unverified , 07/31/25) Scheduled Amox Tr/Potassium Clavulanate (Augmentin 875-125 Tablet), 1 TAB PO Q12H Benazepril HCl (Benazepril HCl), 2 TAB PO DAILY Past Medical History Past Medical History: Hypertension, Hernia, MRSA Abscess Past Surgical History: other Other Past Surgical History: Splenectomy Alcohol Use: None Drug Use: methamphetamine Lives In: Home Occupation: employed Review of Systems ROS All review of systems negative except as per HPI Physical Exam Vital Signs: Temperature: 98.0, Source: Temporal, Heart Rate: 83, Respiratory Rate: 16, BP: 198/106, Pulse Oximetry: 98, Weight: 70.910 Oxygen Flow Rate: 0 Physical Exam General: Patient is awake, alert, oriented x4 in no acute distress Head: Normocephalic and atraumatic. Eyes: Conjunctival normal. EOMI. PERRL. ENT: Mucous membranes moist. Neck: Supple, trachea is midline. Chest: Clear to auscultation bilaterally without rales, rhonchi, or wheezes. There is no accessory muscle use or retractions. Cardiac: RRR without murmurs, gallops, or rubs. Abd: Soft, nondistended, nontender, with normoactive bowel sounds. No guarding, rebound, or rigidity. Progress Results/Orders Results/Orders Orders - CRESCENCIO RAMIREZ MD * Bladder Scan / Post Residual (07/31/25 23:49) Vital Signs 07/31/25 23:37 Temp 98.0 Pulse 83 Resp 16 B/P (MAP) 198/106 Pulse Ox 98 O2 Flow Rate 0 Medical Decision Making Findings Patient presents with urinary retention Mckenzie placed. The need to follow up with his doctor discussed. Departure Disposition: HOME / SELF CARE / HOMELESS Impression: Primary Impression: Urinary retention Condition: Stable Discharge Instructions: Acute Urinary Retention, Male Referrals: NO PRIMARY CARE PROVIDER (PCP) Prescriptions Ciprofloxacin HCl (Ciprofloxacin HCl) 500 Mg Tab 1 TAB PO Q12H for 7 Days, #14 TAB Prov: CRESCENCIO RAMIREZ MD 07/31/25 Tamsulosin Hcl* (Flomax*) 0.4 Mg Cap.sr.24h 1 CAP PO DAILY, #10 CAP Prov: CRESCENCIO RAMIREZ MD 07/31/25 Education Educated: Patient Educated regarding: diagnosis, treatment, need for follow up Signature Scribe Signature: No scribe Attestation: The note accurately reflects work and decisions made by me.Crescencio Ramirez MD 07/31/25 23:59 CRESCENCIO RAMIREZ MD Jul 31, 2025 23:49
[2025-07-31] MEDS ORDERED: TAMS-55 PO (23:59)
[2025-07-31] MEDS ORDERED: CIPR-458 PO (23:59)
[2025-08-01] MEDS: LidoCAINE 2% Topical Jelly 11mL syringe (UROJET) TOP ONE (00:25)
[2025-08-01 00:32] VITALS: BP 168/84; PULSE 88; RESP 18; O2SAT 98
== END 2025-08-01 00:33 | disposition home or self-care (01) ==
LOC: ER 23:35
DX: R33.9 Retention of urine, unspecified (principal); F15.90 Other stimulant use, unspecified, uncomplicated; I10 Essential (primary) hypertension; Z86.14 Personal history of Methicillin resistant Staphylococcus aureus infection; Z90.81 Acquired absence of spleen
CPT/HCPCS: 51702; 51798; 99284; C1758; A5200

== ENCOUNTER 2025-08-20 05:13 | Emergency (ER) | payer MEDICAID, OTHER ==
[~2025-08-20] VITALS: Ht 170.2 cm; Wt 74.4 kg
[~2025-08-20 05:13] MED LIST changes: -AMOX-117 PO; +TAMS-55 PO
[2025-08-20 05:18] VITALS: BP 173/102; PULSE 93; RESP 16; TEMP 97.6; O2SAT 98
[2025-08-25] MEDS ORDERED: SULF1TAB49 PO (07:38)
== END 2025-08-20 07:24 | disposition left against medical advice (07) ==
LOC: ER 05:14
DX: R33.9 Retention of urine, unspecified (principal); Z53.21 Procedure and treatment not carried out due to patient leaving prior to being seen by health care provider
CPT/HCPCS: 99281

== ENCOUNTER 2025-08-21 16:04 | Emergency (ER) | payer MEDICAID ==
[2025-08-22] MEDS ORDERED: CIPR-260 PO (03:04)
[2025-08-22] MEDS ORDERED: TAMS-55 PO (03:30)
[2025-08-25] MEDS ORDERED: SULF1TAB49 PO (07:38)
== END 2025-08-21 16:22 | disposition left against medical advice (07) ==
LOC: ER 16:05
DX: K46.9 Unspecified abdominal hernia without obstruction or gangrene (principal); Z53.21 Procedure and treatment not carried out due to patient leaving prior to being seen by health care provider

== ENCOUNTER 2025-08-21 23:25 | Emergency (ER) | payer MEDICAID ==
[~2025-08-21] VITALS: Ht 170.2 cm; Wt 74.4 kg
[2025-08-22 02:30] LABS: LEUKOCYTE ESTERASE ,URINE LARGE (Neg); NITRITES, URINE NEGATIVE (Neg); OCCULT BLOOD,URINE SMALL (Neg)
[2025-08-22 02:51] LABS: UA COLLECTION TYPE CLN CATCH MIDSTREAM
[2025-08-22 02:53] LABS: SQUAMOUS EPITHELIAL CELL,UR NONE SEEN /LPF (FEW); WBC CLUMPS,URINE MANY /HPF (NEGATIVE)
[2025-08-22] MEDS ORDERED: CIPR-260 PO (03:04)
--- NOTE | 2025-08-22 03:04 | Physician Documentation ---
History of Present Illness ~ Chief Complaint: Urinary Retention Stated Complaint: HERNIA Time Seen by MD: 00:45 Primary Medical Doctor: None HPI Patient is feels like he is having urinary retention he has the urge to urinate. Denies dysuria no fever vomiting. He he has had prostate problems in the past. Medication Reconciliation Allergies: Coded Allergies: No Known Allergies (Unverified , 07/31/25) Scheduled Benazepril HCl (Benazepril HCl), 2 TAB PO DAILY Tamsulosin Hcl* (Flomax*), 1 CAP PO DAILY Past Medical History Past Medical History: Hypertension, Hernia, MRSA Abscess Past Surgical History: other Other Past Surgical History: Splenectomy Alcohol Use: None Drug Use: methamphetamine Lives In: Home Occupation: employed Physical Exam Vital Signs: Temperature: 98.6, Source: Temporal, Heart Rate: 72, Respiratory Rate: 16, BP: 149/98, Pulse Oximetry: 99, Weight: 74.400 Physical Exam General: Awake and Alert, no acute distress. HEENT: Conjunctiva pink, Sclera clear, Neck: Supple Resp: Unlabored. Heart: Good perfusion Abdomen: Nondistended; soft mild suprapubic tenderness. He does not have an obviously distended bladder Extremities: No cyanosis,clubbing or edema. Skin: Warm and Dry. Neuro: no focal deficits Progress Results/Orders Results/Orders Orders - DAISY NUNES MD Cult Urine + [address] (08/22/25 02:54) Ciprofloxacin Tablet (Cipro Tablet) (08/22/25 03:00) Completed Orders - DAISY NUNES MD Ua W/Microscopic, Cult If Ind (08/22/25 01:20) Vital Signs 08/21/25 08/22/25 23:35 02:31 Temp 98.1 98.6 Pulse 95 72 Resp 16 B/P (MAP) 157/100 149/98 (115) Pulse Ox 98 99 Laboratory Tests Test 08/22/25 01:20 Urine Specimen Description Cln catch midstream Urine Color Yellow Urine Clarity Cloudy Urine pH 7.0 Urine Specific [place] 1.015 Urine Protein Trace Urine Glucose (UA) Negative Urine Ketones Negative Urine Occult Blood Small Urine Nitrite Negative Urine Bilirubin Negative Urine Urobilinogen 0.2 Urine Leukocyte Esterase Large H Urine RBC 0-2 Urine WBC 5-10 H Urine WBC Clumps Many Urine Squamous Epithelial Cells None seen Urine Bacteria 4+ Urine Culture Indicated Indicated Volume Urine Centrifuged 10 ml Urine Comment Medical Decision Making Findings Patient has had a history of prostate problems in the past he has been on antibiotics recently his postvoid residual was only 300 cc so he does not require a Mckenzie catheter. I wrote a prescription for Flomax. We will treat him with Cipro 250 b.i.d. for two weeks as he may have prostatitis since he is not responding antibiotic regimens for simple UTI. Departure Disposition: HOME / SELF CARE / HOMELESS Impression: Primary Impression: Acute urinary tract infection Condition: Stable Discharge Instructions: Urinary Tract Infection, Adult Referrals: NO PRIMARY CARE PROVIDER (PCP) Prescriptions Ciprofloxacin HCl (Cipro) 250 Mg Tablet 2 TAB PO Q12H for 14 Days, #56 TAB 0 Refills Prov: DAISY NUNES MD 08/22/25 Education Educated: Patient Educated regarding: diagnosis, treatment, prognosis, need for follow up Signature Scribe Signature: no scribe Attestation: no scribe DAISY NUNES MD Aug 22, 2025 03:04
[2025-08-22] MEDS: ciprofloxacin 250mg tablet PO ONE (03:18)
[2025-08-22] MEDS ORDERED: TAMS-55 PO (03:30)
[2025-08-22] MEDS ORDERED: iohexol 300mg/ml 100ml inj. ONE (04:22)
[2025-08-22] MEDS: LidoCAINE 2% Topical Jelly 11mL syringe (UROJET) TOP ONE (04:50)
[2025-08-22 04:51] LABS: MEAN PLATELET VOLUME 8.4 FL (7.4-10.4); RED CELL DISTRIBUTION WIDTH 13.7 % (11.5-14.5)
--- NOTE | 2025-08-22 05:09 | RADIOLOGY REPORT ---
Exam: CT CT ABDOMEN PELVIS W/ IV CONTRAST History: abdominal pain inguinal hernia COMPARISON: None Technique: Multidetector spiral CT of the abdomen and pelvis was performed from lung bases to pubic symphysis. Intravenous contrast was administered during this examination. Portal venous imaging was obtained. Axial, coronal and sagittal multiplanar reformats were performed by the technologist on a separate workstation. Radiation Dose : 1. Abdomen/Pelvis: CTDIvol 8 mGy, DLP 648 mGy*cm. Findings: Lower Chest: Minimal right posterior costophrenic angle opacity, most consistent with atelectasis. Liver: Diffuse hypoenhancement. Gallbladder and Biliary Tree: Unremarkable Pancreas: Unremarkable. Spleen: Absent. Adrenal Glands: Unremarkable Kidneys: Normal. Bladder: Decompressed around a Mckenzie catheter with significant wall thickening. Pelvic Organs: Borderline prostatomegaly. Left hydrocele. Prominent right epididymis. Bowel: Circumferential distal esophageal wall thickening. The stomach, duodenum, and small bowel are unremarkable. No evidence of appendicitis. The large bowel is normal in caliber without wall thickening. Vasculature: Unremarkable. Lymphadenopathy: No evident adenopathy. Peritoneum/abdominal wall: Large indirect left inguinal hernia containing several small bowel loops and ascites, without evidence of complication. No free air or fluid collection. Musculoskeletal: No acute abnormality. IMPRESSION: 1. Large left inguinal hernia containing uncomplicated small bowel loops as well as ascites. No bowel obstruction. 2. Distal esophageal wall thickening compatible with esophagitis. 3. Marked urinary bladder wall thickening with Mckenzie catheter in place. Underlying cystitis or chronic outlet obstruction is likely. 4. Other chronic and incidental findings above. Radiation optimization: All CT scans at this facility use at least one of these dose optimization techniques: automated exposure control mA and/or kV adjustment per patient size (includes targeted exams where dose is matched to clinical indication) or iterative reconstruction.
[2025-08-22 05:36] LABS: CREATININE 1.26 MG/DL (0.60-1.10); TOTAL CARBON DIOXIDE 27.9 MMOL/L (24-32); eCRCL 61 ML/MIN; eGFR 59 ML/MIN
[2025-08-22 06:03] VITALS: BP 140/82; PULSE 68; RESP 18; TEMP 98.6; O2SAT 99
== END 2025-08-22 06:04 | disposition home or self-care (01) ==
LOC: ER 23:25
DX: N39.0 Urinary tract infection, site not specified (principal); I10 Essential (primary) hypertension; F15.90 Other stimulant use, unspecified, uncomplicated; Z90.81 Acquired absence of spleen
CPT/HCPCS: 36415; 74177; 80053; 81001; 83605; 85025; 87088; 99285; Q9967; 87077; 87186; 99284; A4314; A4358

== ENCOUNTER 2025-09-30 10:52 | Emergency (ER) | payer MEDICAID ==
[~2025-09-30] VITALS: Ht 170.2 cm; Wt 75.1 kg
[~2025-09-30 10:52] MED LIST changes: +CIPR-260 PO; -TAMS-55 PO
--- NOTE | 2025-09-30 12:40 | Physician Documentation ---
History of Present Illness ~ Chief Complaint: Knee Pain Stated Complaint: R KNEE INFECTION Time Seen by MD: 11:56 Primary Medical Doctor: None Source: patient Mode of Arrival: POV Exam Limitations: no limitations HPI Presents for right knee pain. He has difficulty walking. Intermittent fever. He has a wound that is draining purulent drainage to the need onset one week ago. He states he was prescribed Cipro a couple of weeks ago for urinary tract infection however he was unable to complete his antibiotics. Denies current urinary symptoms. Was asked, but otherwise denies review of systems. Tetanus witin 5 years: No Medication Reconciliation Allergies: Coded Allergies: No Known Allergies (Unverified , 09/30/25) Scheduled Benazepril HCl (Benazepril HCl), 2 TAB PO DAILY Cephalexin (Cephalexin), 1 CAP PO Q12H Ciprofloxacin HCl (Cipro), 2 TAB PO Q12H Sulfamethoxazole/Trimethoprim (Bactrim Ds Tablet), 1 TAB PO Q12H Past Medical History Past Medical History: Hypertension, Hernia, MRSA Abscess Past Surgical History: other Other Past Surgical History: Splenectomy Alcohol Use: None Drug Use: methamphetamine Lives In: Home Occupation: employed Review of Systems ROS Patient complaining of chills, no known fever as he does not have a thermometer. He has right knee pain with purulent drainage. Was asked, but otherwise denies pertinent review of systems. Physical Exam Vital Signs: RN Vital Signs have been reviewed: Yes, Temperature: 99.2, Source: Temporal, Heart Rate: 102, Respiratory Rate: 18, BP: 171/92, Pulse Oximetry: 96, Weight: 75.100 Oxygen Flow Rate: 0 Pulse Oximetry Reflects: adequate oxygenation Physical Exam General: Awake, alert, oriented. No apparent distress Respiratory: Lungs are clear to auscultation bilaterally. No respiratory d istress. Chest: Normal shape and size. No accessory muscle use. Cardiovascular: Regular rate and rhythm. S1-S2. No murmur, gallop, rub. Extremities: Right knee with swelling. There is a wounds to the inferior surface of the right knee over the tibia region. There is a wound that measures 2 cm x 1 cm draining purulent drainage. There is minimal surrounding erythema. Swelling to the right calf. Neurologic: Alert and oriented x4. Nonfocal Psychiatric: Normal mood and affect. Skin: Normal color. Warm and dry. Progress Results/Orders Results/Orders Orders - ELIAS RIOS [employer] LO[employer]ER Culture Blood (09/30/25 12:33) Normal Saline 1000ml (0.9% Sodium Chlori (09/30/25 13:30) Completed Orders - ELIAS RIOS [employer] Cbc/Diff (09/30/25 12:33) MG (09/30/25 12:33) Procalcitonin (09/30/25 12:33) BMP (09/30/25 12:33) Lacticsepsis (09/30/25 12:33) Vancomycin 1gm 200ml H20 (Peg) (Vancomyc (09/30/25 13:30) Vancomycin/Ns 1 Gm Add-[place] (Vancomyc (09/30/25 13:35) Medications Received in ER Medications (Trade) Dose Ordered Sig/Yazan Route PRN Reason Start Time Stop Time Status Last Admin Dose Admin (0.9% sodium chloride (NS) 1000ml IV soln) 1,000 ml ONCE ONCE IVB 09/30/25 13:30 09/30/25 13:31 DC 09/30/25 13:47 1,000 ML Vancomycin HCl 250 ml @ 166.236 mls/hr ONCE ONCE IV 09/30/25 13:35 09/30/25 15:05 DC 09/30/25 13:55 166.236 MLS/HR Vital Signs 09/30/25 09/30/25 09/30/25 11:05 12:39 15:58 Temp 99.2 99.7 99.7 Pulse 102 111 99 Resp 18 16 16 B/P (MAP) 171/92 154/85 (108) 155/86 Pulse Ox 96 95 99 O2 Flow Rate 0 0 Laboratory Tests Test 09/30/25 12:50 White Blood Count 14.8 H Red Blood Count 4.26 L Hemoglobin 12.8 L Hematocrit 37.7 L Mean Corpuscular Volume 88.6 Mean Corpuscular Hemoglobin 30.0 Mean Corpuscular Hemoglobin Concent 33.9 Red Cell Distribution Width 14.1 Platelet Count 556 H Mean Platelet Volume 8.2 Neutrophils (%) (Auto) 81.8 H Lymphocytes (%) (Auto) 6.9 L Monocytes (%) (Auto) 10.7 Eosinophils (%) (Auto) 0.3 Basophils (%) (Auto) 0.3 Neutrophils # (Auto) 12.1 H Lymphocytes # (Auto) 1.0 L Monocytes # (Auto) 1.6 H Eosinophils # (Auto) 0.0 Basophils # (Auto) 0.1 CBC Comment Sodium Level 136 Potassium Level 4.0 Chloride Level 102 Carbon Dioxide Level 30.7 Anion Gap 3 L Blood Urea Nitrogen 16 Creatinine 1.20 H Estimated GFR/1.73 m2 63 BUN/Creatinine Ratio 13.3 Glucose Level 124 H Lactic Acid Level 1.2 Calcium Level 8.4 L Magnesium Level 2.1 Albumin 2.3 L Procalcitonin 0.05 Chemistry Comments Microbiology Date/Time Source Procedure Growth Status 09/30/25 12:50 Blood Arm Left Blood Culture - Preliminary NEGATIVE (LESS THAN 24 HOURS) Resulted Medical Decision Making Additional information obtaine: old records Findings Patient presents with abscess to his knee that is open and draining with associated swelling. WBCs are elevated. Lactic acid was normal and procalcitonin was within normal range. He is able to move his knee and he is able to walk. Low clinical suspicion for septic arthritis. Given his tachycardia and elevated WBC count he was recommended for admission for IV antibiotics. He refuses. Risks were reviewed with him in detail. He adamantly refuses admission. Therefore, he was given a dose of IV vancomycin. I will treat with oral antibiotics and he will follow closely. Educated to return in two days for wound check. Warning signs and symptoms were reviewed. The case was discussed with the attending physician, Louis. The plan of care, diagnostic evaluation and medical decision making were discussed. The attending physician was available for consultation, where the diagnostic findings as well as the eventual disposition. Recommended that patient be admitted. As noted above patient declined. General Diff Dx:Considerations: Unlikely: Other Knee Diff Dx:Considerations: Include: Abrasion, Arthritis, Contusion, Neurovascular injury, Septic; Unlikely: Other Ankle Diff Dx:Considerations: Unlikely: Other Foot Diff Dx:Considerations: Unlikely: Other Toe Diff Dx:Considerations: Unlikely: Other Departure Time of Disposition: 16:20 Disposition: 07 LEFT AGAINST MEDICAL ADVICE Impression: Primary Impression: Cellulitis Qualified Codes: L03.115 - Cellulitis of right lower limb Condition: Fair Discharge Instructions: Cellulitis, Adult Additional Instructions: Were recommended to be admitted for your infection. Your labs were somewhat reassuring but your white count is elevated which does indicate infection. You have been given one dose of heavy duty IV antibiotics while you were in the emergency department. Please take your oral antibiotics as prescribed. Recommend that you come back for a wound check in the next two days. Return for worsening symptoms, fevers or chills or any other concerns. Under more of your blood pressures was greater than 130/80. I recommend that you follow up with your primary care provider for management of hypertension. Referrals: NO PRIMARY CARE PROVIDER (PCP) Prescriptions Cephalexin (Cephalexin) 500 Mg Capsule 1 CAP PO Q12H for 7 Days, #14 CAP Prov: ELIAS RIOS [employer] LO[employer]OSER 09/30/25 Sulfamethoxazole/Trimethoprim (Bactrim Ds Tablet) 800 Mg-160 Mg Tablet 1 TAB PO Q12H for 10 Days, #20 TAB Prov: ELIAS RIOS [employer] LO[employer]OSER 09/30/25 Education Educated: Patient Educated regarding: diagnosis, treatment, need for follow up Signature Scribe Signature: No scribe Attestation: The note accurately reflects work and decisions made by me.Elias Rios - ROYER 09/30/25 20:41 This note was created with the assistance of voice recognition software whereby errors in grammar, syntax, and/or spelling may have occurred despite active proofreading efforts by the author. Please do not hesitate to contact the provider for clarification or for questions regarding the content of this document. ELIAS RIOS NP Sep 30, 2025 12:40
[2025-09-30 13:15] LABS: MEAN PLATELET VOLUME 8.2 FL (7.4-10.4); RED CELL DISTRIBUTION WIDTH 14.1 % (11.5-14.5)
[2025-09-30 13:23] LABS: CREATININE 1.20 MG/DL (0.60-1.10); TOTAL CARBON DIOXIDE 30.7 MMOL/L (24-32); eCRCL 64 ML/MIN; eGFR 63 ML/MIN
[2025-09-30] MEDS ORDERED: VANCOMYCIN 1GM 200ML H20 (PEG) 200 ML IV ONE (13:30)
[2025-09-30] MEDS: normal saline 1000ML IV soln IVB ONE (13:47)
[2025-09-30] MEDS: vancomycin/NS 1 GM ADD-VANTAGE 250 ML IV ONE (13:55)
[2025-09-30] MEDS ORDERED: CEPH500C81 PO (14:35)
[2025-09-30] MEDS ORDERED: SULF1TAB49 PO (14:35)
[2025-09-30 15:58] VITALS: BP 155/86; PULSE 99; RESP 16; TEMP 99.7; O2SAT 99
== END 2025-09-30 16:04 | disposition left against medical advice (07) ==
LOC: ER 10:52
DX: L03.115 Cellulitis of right lower limb (principal); R50.9 Fever, unspecified; I10 Essential (primary) hypertension; F15.90 Other stimulant use, unspecified, uncomplicated; Z90.81 Acquired absence of spleen
CPT/HCPCS: 36415; 80048; 83605; 83735; 84145; 85025; 87040; 96365; 99284; J3373; J7030

== ENCOUNTER 2025-11-01 04:49 | Inpatient (IN) | payer MEDICAID ==
[~2025-11-01] VITALS: Ht 170.2 cm; Wt 78.4 kg
--- NOTE | 2025-11-01 05:19 | Physician Documentation ---
History of Present Illness ~ Chief Complaint: Shortness of Breath Stated Complaint: SHORT OF BREATH Time Seen by MD: 05:06 Primary Medical Doctor: None HPI Patient presents to the emergency room with three day history of shortness of breath. History of asthma he continues to smoke. He also endorses left upper extremity weakness over the past two months that has states that has affecting his ability to hold tools. He also mentioned some degree of left lower extremity discoordination. Medication Reconciliation Allergies: Coded Allergies: No Known Allergies (Unverified , 09/30/25) Scheduled Benazepril HCl (Benazepril HCl), 2 TAB PO DAILY Ciprofloxacin HCl (Cipro), 2 TAB PO Q12H Past Medical History Past Medical History: Hypertension, Hernia, MRSA Abscess Past Surgical History: other Other Past Surgical History: Splenectomy Alcohol Use: None Drug Use: methamphetamine Lives In: Home Occupation: employed Review of Systems ROS All review of systems negative except as per HPI Physical Exam Vital Signs: Temperature: 97.7, Heart Rate: 102, Respiratory Rate: 22, BP: 202/125, Pulse Oximetry: 97, Weight: 78.400 General Appearance General: Patient is awake, alert, oriented x4 in no acute distress Head: Normocephalic and atraumatic. Eyes: Conjunctival normal. EOMI. PERRL. ENT: Mucous membranes moist. Neck: Supple, trachea is midline. Chest: Clear to auscultation bilaterally without rales, rhonchi, or wheezes. There is no accessory muscle use or retractions. Cardiac: RRR without murmurs, gallops, or rubs. Neuro: Cranial nerves II-XII grossly intact. No focal neuro deficits. Progress Results/Orders Results/Orders Orders - CRESCENCIO RAMIREZ MD Chest,Single View (11/01/25 05:10) Monitor (11/01/25 05:05) Saline Lock (11/01/25 05:05) Oxygen (11/01/25 05:05) Ct Head (11/01/25 05:30) Completed Orders - CRESCENCIO RAMIREZ MD Chest,Single View (11/01/25 05:10) Cbc/Diff (11/01/25 05:05) BMP (11/01/25 05:05) PBNP (11/01/25 05:05) Electrocardiogram (11/01/25 05:05) Hs Troponin I W Calculations (11/01/25 05:05) Hs Troponin I W Calculations (11/01/25 07:05) Ct Head (11/01/25 05:30) Aspirin 325mg Tablet (Aspirin 325mg Tabl (11/01/25 06:05) Hgb A1c (11/01/25 05:02) Lipid Panel (11/01/25 05:02) Vital Signs 11/01/25 11/01/25 11/01/25 11/01/25 04:54 05:13 06:02 06:12 Temp 97.7 97.6 Pulse 102 97 104 Resp 22 18 22 22 B/P (MAP) 202/125 170/112 (131) 186/120 (142) Pulse Ox 97 99 96 O2 Flow Rate 0 11/01/25 11/01/25 06:20 06:20 Temp 97.6 Pulse 101 Resp 18 18 B/P (MAP) 187/125 (145) Pulse Ox 100 O2 Flow Rate 0 Laboratory Tests Test 11/01/25 05:02 White Blood Count 6.3 Red Blood Count 4.17 L Hemoglobin 12.1 L Hematocrit 37.2 L Mean Corpuscular Volume 89.1 Mean Corpuscular Hemoglobin 29.0 Mean Corpuscular Hemoglobin Concent 32.6 L Red Cell Distribution Width 16.2 H Platelet Count 282 Mean Platelet Volume 8.2 Neutrophils (%) (Auto) 51.1 Lymphocytes (%) (Auto) 29.2 Monocytes (%) (Auto) 9.4 Eosinophils (%) (Auto) 8.8 H Basophils (%) (Auto) 1.5 H Neutrophils # (Auto) 3.2 Lymphocytes # (Auto) 1.9 Monocytes # (Auto) 0.6 Eosinophils # (Auto) 0.6 Basophils # (Auto) 0.1 CBC Comment Sodium Level 145 Potassium Level 3.8 Chloride Level 109 H Carbon Dioxide Level 29.0 Anion Gap 7 L Blood Urea Nitrogen 28 H Creatinine 1.53 H Estimated GFR/1.73 m2 47 BUN/Creatinine Ratio 18.3 Glucose Level 113 H Hemoglobin A1c 5.6 Calcium Level 8.9 Troponin I High Sensitivity 92 *H Pro-B-Type Natriuretic Peptide 5361 H Albumin 2.9 L Triglycerides Level 39 Cholesterol Level 133 LDL Cholesterol 59 HDL Cholesterol 65 H Cholesterol/HDL Ratio 2.0 Chemistry Comments EKG/XRAY/CT/US/VASC/MRI EKG : Additional Comment EKG interpreted by myself shows time of 0456, rate 89, sinus rhythm, right axis deviation, nonspecific ST-T changes Medical Decision Making Additional information obtaine: N/A Findings Patient presents to the emergency room with shortness of breath and left upper extremity weakness. Differentials include but are not limited to stroke, pneumonia, pneumothorax, CHF therefore emergent labs and imaging indicated. CT scan is reassuring. We will outside window for TNK. Believe he would benefit for possible stroke and new onset CHF. Patient that has that has who care that has dog therefore signed out against medical advice to return for treatment. Heart Score: 3 Differential Dx:Considerations: Include: anxiety, asthma, bronchitis, cardiogenic shock, CHF, COPD, dysrhythmia, hypertension, accelerated, hypertension, essential, hypertension, malignant, hyperventilation, hyp onatremia, myocardial infarction, panic attack, pneumonia, pneumonitis, pneumothorax, PSVT, pulmonary embolism, respiratory distress, respiratory failure, sinusitis, upper resp. infection, other Departure Disposition: LEFT AGAINST MEDICAL ADVICE Impression: Primary Impression: Possible stroke Additional Impression: New onset of congestive heart failure Condition: Guarded Referrals: NO PRIMARY CARE PROVIDER (PCP) Signature Scribe Signature: No scribe Attestation: The note accurately reflects work and decisions made by me.Crescencio Ramirez MD 11/01/25 18:28 CRESCENCIO RAMIREZ MD Nov 01, 2025 05:19
--- NOTE | 2025-11-01 05:25 | RADIOLOGY REPORT ---
CHEST RADIOGRAPH INDICATION: CP TECHNIQUE: Single frontal view of the chest was obtained COMPARISON: None FINDINGS: Lines and Tubes: None Lungs: Clear Pleura: No effusion. No pneumothorax. Cardiomediastinal contours: Cardiomegaly. Bones: Unremarkable IMPRESSION: 1. Cardiomegaly.
[2025-11-01 05:30] LABS: MEAN PLATELET VOLUME 8.2 FL (7.4-10.4); RED CELL DISTRIBUTION WIDTH 16.2 % (11.5-14.5)
--- NOTE | 2025-11-01 05:44 | RADIOLOGY REPORT ---
EXAM: CT CT HEAD INDICATION: Left upper extremity weakness TECHNIQUE: CT of the head without intravenous contrast. Radiation Dose : 1. Head: CT Dose: CTDI volume is 57 mGy. Dose-length product is 1087 mGy*cm The dose indicators for CT are the volume Computed Tomography (CT) Dose Index (CTDIvol) and the Dose Length Product (DLP), and are measured in units of mGy and mGy-cm, respectively. These indicators are not patient dose, but values generated from the CT scanner acquisition factors. The report includes radiation exposure data for exposures received during this examination. COMPARISON: None FINDINGS: There is no evidence of acute intracranial hemorrhage, extra-axial collection, mass effect, midline shift, herniation or hydrocephalus. The ventricles, sulci and cisterns are age appropriate. The morton-white differentiation is intact. Patchy periventricular and subcortical white matter hypoattenuation is nonspecific but may be related to small vessel ischemic disease. The visualized paranasal sinuses and mastoid air cells are clear. The surrounding soft tissues and osseous structures are unremarkable. IMPRESSION: No acute intracranial abnormality. Patchy periventricular and subcortical white matter hypoattenuation is nonspecific but may be related to small vessel ischemic disease. Radiation optimization: All CT scans at this facility use at least one of these dose optimization techniques: automated exposure control mA and/or kV adjustment per patient size (includes targeted exams where dose is matched to clinical indication) or iterative reconstruction.
[2025-11-01 05:57] LABS: CREATININE 1.53 MG/DL (0.60-1.10); PRO BRAIN NATRIURETIC PEPTIDE 5361 PG/ML (0-125); TOTAL CARBON DIOXIDE 29.0 MMOL/L (24-32); eCRCL 50 ML/MIN; eGFR 47 ML/MIN
--- NOTE | 2025-11-01 06:04 | ELECTROCARDIOGRAPH REPORT ---
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
[2025-11-01] MEDS ORDERED: potassium Cl 40MEQ/1/2NS 520ml 520 ML IV PRN (07:10)
[2025-11-01] MEDS ORDERED: magnesium hydroxide 30ml (MOM) UD suspension PO PRN (07:10)
[2025-11-01] MEDS ORDERED: magnesium sulf-water 4G/100mL 100 ML IV PRN (07:10)
[2025-11-01] MEDS ORDERED: ondansetron/PF 4mg/2ml inj IV PRN (07:10)
[2025-11-01] MEDS ORDERED: mag hydrox/Alum hydrox/simeth 30ml oral suspension PO PRN (07:10)
[2025-11-01] MEDS ORDERED: potassium Cl 20 mEq SR tablet PO PRN ×2 (07:10)
[2025-11-01] MEDS ORDERED: HYDROcodone/acetaminophen 10/325mg tab PO PRN (07:10)
[2025-11-01] MEDS ORDERED: magnesium Cl slow-release 64mg tablet PO PRN (07:10)
[2025-11-01] MEDS ORDERED: magnesium sulf-water 2g/50mL 50 ML IV PRN (07:10)
[2025-11-01] MEDS ORDERED: HYDROcodone/acetaminophen 5mg/325mg tablet PO PRN (07:10)
[2025-11-01] MEDS: furosemide 10 MG/1 ML 10ml inj IV ONE (07:14)
[2025-11-01] MEDS ORDERED: hydrALAZINE 20mg/ml inj. IV PRN (07:15)
[2025-11-01] MEDS: PERFLUTREN PROTEIN-A MICROSPHR (Optison) 0.22 MG/ML 3ML VIAL IV ONE (07:19)
[2025-11-01 07:25] VITALS: BP 179/134; PULSE 104; RESP 20; O2SAT 98
[2025-11-01 07:50] LABS: CHOL/HDL RATIO 2.0 (0.00-4.99); LDL CHOLESTEROL 59 MG/DL (50-100)
[2025-11-01] MEDS ORDERED: heparin, porcine 5000 units/ml vial SQ SCH (08:00)
[2025-11-01] MEDS ORDERED: docusate sod 100mg capsule PO SCH (08:00)
[2025-11-01] MEDS ORDERED: K and/or MAG REPLACEMENT MC SCH (08:00)
[2025-11-01 08:11] VITALS: TEMP 97.6
[2025-11-01] MEDS ORDERED: NO HOME MEDS (20:12)
== END 2025-11-01 08:02 | disposition left against medical advice (07) | DRG 194 ==
LOC: ER 04:50 → ED HOLD 07:12
PROVIDERS: ADMIT Internal Medicine; ATTEND Internal Medicine
DX: I11.0 Hypertensive heart disease with heart failure (principal); F15.90 Other stimulant use, unspecified, uncomplicated; I50.9 Heart failure, unspecified; Z53.21 Procedure and treatment not carried out due to patient leaving prior to being seen by health care provider; Z90.81 Acquired absence of spleen
CPT/HCPCS: 36415; 70450; 71045; 80048; 80061; 83036; 83880; 84484; 85025; 93005; 96374; 99285; A4615; G0378; J1938

== ENCOUNTER 2025-11-01 10:26 | Inpatient (IN) | payer MEDICAID ==
[~2025-11-01] VITALS: Ht 170.2 cm; Wt 77.7 kg
--- NOTE | 2025-11-01 10:37 | Physician Documentation ---
History of Present Illness General Chief Complaint: Shortness of Breath Stated Complaint: SOB Time Seen by MD: 10:37 Primary Medical Doctor: None History of Present Illness Initial Comments The patient is a 55-year-old male who was seen in the emergency room several hours ago and was going to be admitted for new onset heart failure, the patient has signed out AMA to take care of his dog and he has now returned. The patient complains of three days of increasing shortness of breath. The patient has a history of smoking. The patient was found to have an elevated troponin as well as an elevated BNP, the patient was treated earlier with Lasix. The patient denies any chest pain. Patient's symptoms are moderate and persistent. The patient has a history of methamphetamine use. Medication Reconciliation Allergies: Coded Allergies: No Known Allergies (Unverified , 09/30/25) Miscellaneous Medications Home Med List (No Home Medications), (Reported) Discontinued Medications Benazepril HCl (Benazepril HCl), 2 TAB PO DAILY Discontinued Reason: patient no longer taking Ciprofloxacin HCl (Cipro), 2 TAB PO Q12H Discontinued Reason: patient no longer taking Past Medical History Past Medical History: Hypertension, Hernia, MRSA Abscess Past Surgical History: other Other Past Surgical History: Splenectomy Smoking: Cigarettes Alcohol Use: None Drug Use: methamphetamine Lives In: Home Occupation: employed Review of Systems All Other Systems at this time: Reviewed and Negative Physical Exam Physical Exam Vital Signs: Temperature: 98.9, Source: Temporal, Heart Rate: 78, Respiratory Rate: 18, BP: 152/92, Pulse Oximetry: 98, Weight: 77.700 Oxygen Flow Rate: 0 Physical Exam VITALS: Reviewed and as above. GENERAL: Alert, no apparent distress. HEENT: Normocephalic, atraumatic, PERRL, EOMI, dry mucosa, no erythema RESPIRATORY: Rhonchi bilaterally, no respiratory distress. CHEST: No accessory muscle use, no retractions CV: Regular rate, rhythm, no edema, no murmur, No: JVD GI: Soft, non-tender, bowels sounds present, no rebound, guarding, or rigidity BACK: No CVA tenderness, or swelling MUSCULOSKELETAL: No deformities, no edema SKIN: Warm and dry, no rash NEURO: Oriented x4, No motor or sensory deficit PSYCH: Normal mood and affect, no agitation Progress Results/Orders Results/Orders Orders - OHLFS,ANATOLY R MD Page Hospitalist (11/01/25 ) Completed Orders - ANATOLY COVARRUBIAS MD Nitroglycerin 0.4mg/Hr Patch (Nitro-Dur (11/01/25 10:55) Vital Signs 11/01/25 11/01/25 11/01/25 11/01/25 10:30 10:50 10:50 10:51 Temp 98.9 Pulse 78 82 Resp 18 14 16 B/P (MAP) 152/92 187/95 (125) Pulse Ox 98 94 94 O2 Delivery Room Air* O2 Flow Rate 0 0 0 FiO2 21 11/01/25 11/01/25 11/01/25 11/01/25 11:00 11:15 11:30 11:45 Pulse 80 80 76 73 Resp 18 15 21 23 B/P (MAP) 151/95 (113) 158/100 (119) 160/103 (122) 155/105 (122) Pulse Ox 97 99 99 99 O2 Flow Rate 0 0 0 0 11/01/25 12:00 Pulse 74 Resp 14 B/P (MAP) 158/103 (121) Pulse Ox 99 O2 Flow Rate 0 Medical Decision Making Additional information obtaine: old records Findings Patient with a methamphetamine and cardiomyopathy with dyspnea elevated BNP and cardiomegaly with pulmonary edema on his chest x-ray from his earlier visit. The patient will be admitted to the hospitalist case has been discussed with the hospitalist. Prior hospitalizations has been reviewed. The patient's pulse oximetry was interpreted as normal and adequate. The patient's monitoring manager was interpreted as a sinus rhythm. Differential Diagnosis CHF pneumonia bronchitis Departure Admitted to Inpatient Unit: yes, to hospitalist Impression: Primary Impression: CHF (congestive heart failure) Qualified Codes: I50.9 - Heart failure, unspecified Referrals: NO PRIMARY CARE PROVIDER (PCP) Signature Scribe Signature: No scribe Attestation: The note accurately reflects work and decisions made by me.Anatoly Covarrubias MD 11/03/25 06:40 ANATOLY COVARRUBIAS MD Nov 01, 2025 10:37
[2025-11-01] MEDS ORDERED: ondansetron/PF 4mg/2ml inj IV PRN (12:00)
[2025-11-01] MEDS ORDERED: ipratropium/albuterol 3ml nebule NEB PRN (12:00)
[2025-11-01] MEDS ORDERED: albuterol 2.5 MG/3 ML nebule NEB PRN (12:00)
[2025-11-01] MEDS ORDERED: magnesium sulf-water 4G/100mL 100 ML IV PRN (12:00)
[2025-11-01] MEDS ORDERED: magnesium sulf-water 2g/50mL 50 ML IV PRN (12:00)
[2025-11-01] MEDS ORDERED: potassium Cl 20 mEq SR tablet PO PRN (12:00)
[2025-11-01] MEDS ORDERED: potassium Cl 40MEQ/1/2NS 520ml 520 ML IV PRN (12:00)
[2025-11-01] MEDS ORDERED: mag hydrox/Alum hydrox/simeth 30ml oral suspension PO PRN (12:00)
[2025-11-01] MEDS ORDERED: magnesium hydroxide 30ml (MOM) UD suspension PO PRN (12:00)
[2025-11-01] MEDS: PERFLUTREN PROTEIN-A MICROSPHR (Optison) 0.22 MG/ML 3ML VIAL IV ONE (12:00)
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
[2025-11-01 15:12] VITALS: PULSE 82; RESP 15; O2SAT 98
--- NOTE | 2025-11-01 17:50 | CARDIOLOGY REPORT ---
APPROVED REPORT EXAM: Comprehensive 2D, Doppler, and color-flow Echocardiogram. 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 3.07 cm IVC 27.38 mm FS (%) 8.4 % SV 51.0 ml CO 3.9 L/min M-Mode Dimensions Left Atrium(MM) 5.13 (2.5-4.0cm) Aortic Root 3.52 (2.2-3.7cm) Aortic Cusp Exc 2.04 (1.5-2.0cm) MV EPSS 2.7 (<0.5cm) Aortic Valve AoV Peak Nacho. 123.3 cm/s AoV VTI 20.7 cm AO Peak GR. 6.1 mmHg AO Mean GR. 3 mmHg LVOT VTI 10.98 cm LVOT Peak Nacho. 81.1 cm/s BRANDI(VTI)/BSA 2.18 cm2/m2 BRANDI (VTI) 2.18 cm2 AI P 1/2 Time 584 ms AV DI 0.53 % Mitral Valve MV E Velocity 92.1 cm/s MV Peak Gr. 2 mmHg MV DECEL TIME 136 ms MV A Velocity 87.3 cm/s MV PHT 72 ms E/A Ratio 1.1 MVA (PHT) 3.06 cm2 MV VMax 69.4 cm/s TDI Lateral E' P. V 4.44 cm/s Medial E' P. V 3.33 cm/s E/Lateral E' 20.7 E/Medial E' 27.7 Tricuspid Valve TR P. Velocity 280 cm/s RAP ESTIMATE 10 mmHg TR Peak Gr. 31 mmHg RVSP 41 mmHg Pulmonary Vein S1 Velocity 40.1 cm/s D2 Velocity 36.9 cm/s PVa Velocity 29.4 cm/s PVa Duration 132 msec LEFT VENTRICLE Left ventricle is severely dilated with moderately thickened posterior wall. Significant regional wall motion abnormalities are noted. There is severe LV systolic dysfunction present. Overall estimated LVEF is about 15-20%. RIGHT VENTRICLE The right ventricle is normal size with decreased function. ATRIA Left atrium is moderately dilated. AORTIC VALVE Trileaflet AV appears mildly sclerotic without stenosis. Moderate insufficiency by color and spectral flow Doppler. MITRAL VALVE Mitral valve leaflets are thickened with mild posterior annular calcification. No stenosis. TRICUSPID VALVE The tricuspid valve is normal in structure with mild to moderate eccentric septally directred regurgitation by color and spectral flow Doppler. PULMONIC VALVE The pulmonary valve is normal in structure without insufficiency. GREAT VESSELS The aortic root is normal in size. The ascending aorta is normal in size. IVC is dilated and collapses less than 50% with inspiration. PERICARDIUM Normal pericardium. No effusion. Other Information Study Quality: Adequate Conclusion There is severe LV systolic dysfunction present. Overall estimated LVEF is about 15-20%. Left ventricle is severely dilated with moderately thickened posterior wall. The right ventricle is normal size with decreased function. Trileaflet AV appears mildly sclerotic without stenosis. Moderate insufficiency by color and spectral flow Doppler. Mitral valve leaflets are thickened with mild posterior annular calcification. No stenosis. The tricuspid valve is normal in structure with mild to moderate eccentric septally directred regurgitation by color and spectral flow Doppler. The pulmonary valve is normal in structure without insufficiency. The aortic root is normal in size. Normal pericardium. No effusion.
[2025-11-01] MEDS: docusate sod 100mg capsule PO SCH (20:00)
[2025-11-01 20:03] VITALS: PULSE 94; RESP 16; O2SAT 96
[2025-11-01] MEDS ORDERED: NO HOME MEDS (20:12)
[2025-11-01] MEDS: K and/or MAG REPLACEMENT MC SCH (20:21)
[2025-11-01 20:46] VITALS: BP 170/114; PULSE 82; RESP 10; TEMP 98.1; O2SAT 97
[2025-11-01 22:00] VITALS: BP 173/110; PULSE 89; RESP 19; TEMP 97; O2SAT 99
[2025-11-01] MEDS: sacubitril/valsartan 24mg-26mg tablet PO SCH (22:29)
[2025-11-01] MEDS: enoxaparin 40mg/0.4ml syringe SQ SCH (22:31)
[2025-11-01] MEDS: hydrALAZINE 20mg/ml inj. IV PRN (22:38)
[2025-11-01 23:15] VITALS: PULSE 94; RESP 16; O2SAT 96
[2025-11-02] VITALS (8 sets, daily range): BP systolic 129–159; BP diastolic 77–90; PULSE 76–101; RESP 10–21; TEMP 97.5–98.7; O2SAT 92–98
--- NOTE | 2025-11-02 06:03 | ELECTROCARDIOGRAPH REPORT ---
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 Louann Jovel Measurements Intervals [place] Rate: 88 P: 75 ND: 166 QRS: 55 QRSD: 120 T: 239 QT: 391 QTc: 473 Interpretive Statements Sinus rhythm Biatrial enlargement LVH with IVCD and secondary repol abnrm Electronically Signed On 11-02-2025 9:21:[address] Louann Jovel Please click the below link to view image of tracing.
[2025-11-02] MEDS: CefTRIAXone/D5W-Rocephin 1gm 50 ML IV SCH (07:26)
[2025-11-02] MEDS: EMPAGLIFLOZIN 10 MG TABLET PO SCH (07:27)
[2025-11-02] MEDS: metoprolol succinate 25mg (24-HOUR) SR. Tablet PO SCH (07:27)
[2025-11-02 08:01] LABS: MEAN PLATELET VOLUME 8.9 FL (7.4-10.4); RED CELL DISTRIBUTION WIDTH 15.6 % (11.5-14.5)
[2025-11-02 08:31] LABS: CREATININE 1.39 MG/DL (0.60-1.10); TOTAL CARBON DIOXIDE 28.2 MMOL/L (24-32); eCRCL 55 ML/MIN; eGFR 53 ML/MIN
[2025-11-02] MEDS: potassium Cl 20 mEq SR tablet PO PRN (12:15)
[2025-11-02] MEDS: LidoCAINE 2% Topical Jelly 11mL syringe (UROJET) TOP ONE (12:15)
--- NOTE | 2025-11-02 13:04 | ELECTROCARDIOGRAPH REPORT ---
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 Louann Jovel Measurements Intervals [place] Rate: 88 P: 67 ME: 159 QRS: 62 QRSD: 116 T: 245 QT: 396 QTc: 480 Interpretive Statements Sinus rhythm Biatrial enlargement LVH with IVCD and secondary repol abnrm ST depr, consider ischemia, inferior leads Electronically Signed On 11-02-2025 15:06:[address] Louann Jovel Please click the below link to view image of tracing.
--- NOTE | 2025-11-02 21:21 | PROGRESS NOTE ---
Daily Progress Note Providers to CC ~ Antibiotic Timeout Antibiotic Ordered?: Yes Subjective The patient's shortness breath has improved however he is unable to urinate due to his inguinal hernia and a Mckenzie catheter was placed, the patient is rather angry towards the staff in his very upset that he did not get dinner last evening and he is lying negative in the room shouting out to the hallway Objective Vital Signs Date Time Temp Pulse Resp B/P (MAP) Pulse Ox O2 Delivery O2 Flow Rate FiO2 11/02/25 19:00 98.0 86 14 143/77 (99) 96 Room Air 11/02/25 08:00 0.5 24 Result Diagram: 11/02/25 0711/02/25 0705 Gen. No acute distress alert and oriented 4, angry Lungs clear to ascultation bilaterally, no wheezes rales or rhonchi appreciated Heart normal sinus rhythm no murmurs rubs or clicks noted Abdomen soft nontender bowel sounds are normoactive Lower extremities no clubbing cyanosis, nor edema appreciated bilaterally Problem\Assessment\Plan Problems/Diagnosis: (1) CHF (congestive heart failure) # acute HFrEF -echocardiogram demonstrated LVEF of 15-20% with severe dilatation and moderate thickened posterior wall of the left ventricle as well as moderate aortic valve insufficiency On Jardiance and Entresto, metoprolol succinate, spironolactone and Lasix # type 2 mi- secondary to CHF The patient is chest pain-free and repeat high sensitivity troponin remains unchanged from 92 and 92. # hypertension Add PRN hydralazine IV On heart failure medications # methamphetamines use disorder Substance use navigator Allyssa Davis consult is ordered # tobacco use disorder-I spent 12 minutes discussing smoking cessation with the patient including the risk of continuing smoke: Lung cancer, stroke, heart attack, poor wound healing, risk of MRSA skin infections. The expense of smoking cigarettes and how cigarettes have been scientifically engineered to be as addictive as humanly possible. The patient declined a nicotine patch # ERIBERTO- likely secondary to dehydration possible renal tubular stasis Daily metabolic panels are ordered # DVT prophylaxis SCDs SQ Lovenox Date of Service: Nov 02, 2025 Billing Provider: HARMONY PATIÑO DO Common Visit Codes: 60921-[id number] INP/OBS CARE(HIGH) Problem Qualifiers (1) CHF (congestive heart failure): Qualified Codes: I50.9 - Heart failure, unspecified HARMONY PATIÑO DO Nov 02, 2025 21:21
[2025-11-03 02:00] VITALS: BP 139/99; PULSE 90; RESP 17; TEMP 97.5; O2SAT 99
[2025-11-03 03:28] VITALS: PULSE 90; RESP 16; O2SAT 99
[2025-11-03 06:00] VITALS: BP 135/95; PULSE 94; RESP 19; TEMP 97.2; O2SAT 94
[2025-11-03 06:48] LABS: MEAN PLATELET VOLUME 8.7 FL (7.4-10.4); RED CELL DISTRIBUTION WIDTH 15.6 % (11.5-14.5)
[2025-11-03 07:13] LABS: CREATININE 1.59 MG/DL (0.60-1.10); TOTAL CARBON DIOXIDE 27.7 MMOL/L (24-32); eCRCL 48 ML/MIN; eGFR 45 ML/MIN
[2025-11-03 11:00] VITALS: BP 129/66; PULSE 92; RESP 16; TEMP 97.7; O2SAT 92
[2025-11-03 11:09] VITALS: PULSE 98; RESP 16; O2SAT 99
[2025-11-03] MEDS ORDERED: NALT50TA5 PO (14:56)
[2025-11-03] MEDS ORDERED: SPIR25TA PO (14:56)
[2025-11-03] MEDS ORDERED: METO-395 PO (14:56)
[2025-11-03] MEDS ORDERED: FURO20TA4 PO (14:56)
[2025-11-03] MEDS ORDERED: SACU1TAB PO (14:56)
[2025-11-03] MEDS ORDERED: EMPA10TA PO (14:56)
[2025-11-03 15:00] VITALS: BP 128/87
--- NOTE | 2025-11-03 20:36 | DISCHARGE SUMMARY ---
Discharge Summary Providers to CC ~ Discharge Summary Admission Diagnosis: Acute CHF Hospital Course DATE OF ADMISSION: 11/01/2025 DATE OF DISCHARGE: 11/03/2025 Discharge Diagnosis\Comment: Acute HFrEF, type 2 mi secondary to CHF, hypertension, methamphetamine use disorder, tobacco use disorder, ERIBERTO likely secondary to dehydration possible renal tubular stasis Operations\Procedures: None Consultants: None Complications: None Condition on DC: Stable New Medications: Furosemide (Furosemide) 20 Mg Tablet 1 TAB PO DAILY for 30 Days, #30 TAB 0 Refills Naltrexone Hcl (Naltrexone Hcl) 50 Mg Tablet 1 TAB PO DAILY for 30 Days, #30 TAB 0 Refills Empagliflozin (Jardiance) 10 Mg Tablet 10 MG PO DAILY, #30 TAB Metoprolol Succinate (Metoprolol Succinate) 25 Mg Tab.sr.24h 25 MG PO DAILY, #30 TAB.SR Sacubitril/Valsartan (Entresto 24 mg-26 mg Tablet) 24 Mg-26 Mg Tablet 1 TABLET PO BID, #60 TAB Spironolactone (Aldactone) 25 Mg Tablet 25 MG PO DAILY@0830, #30 TAB Discontinued Medications: Home Med List (No Home Medications) Each Discharge Summary: I admitted the patient is in the following HPI:This is a 55-year-old male who had presented earlier this morning to the ED has been admitted and shortly afterwards left AMA walked out to the parking lot and was significantly short of breath and returned back to the ED. The patient informed me he has a feed his dog and that is why he left. The patient is endorses progressive shortness of breath times a couple of days he does endorse orthopnea as well and currently he can walk about 20 ft and then becomes significantly short of breath. On chest x-ray the demonstrates cardiomegaly. The patient has a proBNP of 5361 that is I am admitting the patient for acute CHF the patient had received 20 mg of Lasix when he initially was evaluated in the ED currently the patient exam he has minimal wheezes at the bases and his oxygen saturation is in the 90s on room air. The patient is echocardiogram demonstrated an LVEF of 15-20% with a severe dilatation and moderate thickening of the left ventricle has a while as moderate aortic valve insufficiency the patient is started on Jardiance and Entresto as well as metoprolol succinate spironolactone and Lasix for which the patient has shortness breath did improved significantly to the point where he was able to be discharged on the . The patient was under fluid restrictions during hospitalization I did recommend fluid restrictions to the patient as well and informed him that he should keep a fluids under 2 L and daily weights and if he gains more than 5 lb in three days to take extra Lasix. The patient has a mildly elevated high sensitivity troponin initially in the ED of 92 repeat was 92 which was secondary to his acute HFrEF and the patient is not express any chest pain and that has no signs of an acute NSTEMI during hospitalization that is the elevated high sensitivity troponin was secondary to type 2 mi. The patient has methamphetamine use disorder I did prescribe naltrexone for the patient I did inform him that this is to treat the cravings for methamphetamines. The patient is given educational material on both methamphetamine use disorder and heart failure. I did strongly advise him not to ever use methamphetamines again and to take his meds as recommended in his heart could improve in efficiency the patient is states he works a lot and does realize that he needs to stop using methamphetamines I did inform him if he does not has a efficiency will get worse and at best case scenario he would survive another five years however this would likely be significantly less and that is he would be in a chronic state that he was not in when he 1st came to the hospital. The patient thanked me and I am cautiously hopeful that the patient will make these needed changes in his life. The patient felt ready to be discharged and was medically cleared to be discharged on 11/03/2025 The patient was seen and evaluated on day of discharge. Time spent on discharge 50 minutes *Problems/Diagnosis: (1) CHF (congestive heart failure) Status: Acute Total Time Spent on D/C: > 30 Minutes Date of Service: Nov 03, 2025 Billing Provider: HARMONY PATIÑO DO Common Visit Codes: 60059-ZDB/OBS DISCH DAY >30min Problem Qualifiers (1) CHF (congestive heart failure): Qualified Codes: I50.9 - Heart failure, unspecified HARMONY PATIÑO DO Nov 03, 2025 20:36
== END 2025-11-03 16:11 | disposition home or self-care (01) | DRG 194 ==
LOC: ER 10:26 → ED HOLD 12:03 → PCU 3S 20:46
PROVIDERS: ADMIT Family Medicine; ATTEND Family Medicine
DX: I11.0 Hypertensive heart disease with heart failure (principal); N17.0 Acute kidney failure with tubular necrosis; I21.A1 Myocardial infarction type 2; I50.21 Acute systolic (congestive) heart failure; F17.210 Nicotine dependence, cigarettes, uncomplicated; F15.90 Other stimulant use, unspecified, uncomplicated; Z90.81 Acquired absence of spleen; Z85.47 Personal history of malignant neoplasm of testis
CPT/HCPCS: 36415; 80053; 83735; 85025; 87081; 93005; 93306; 94760; 96374; 99285; A4314; A4615; G0378; J0360; J0696; J1650; J1938; J7040

== ENCOUNTER 2025-11-04 01:52 | Emergency (ER) | payer MEDICAID ==
[~2025-11-04] VITALS: Ht 170.2 cm; Wt 66.0 kg
[~2025-11-04 01:52] MED LIST changes: -BENA5TAB26 PO; -CIPR-260 PO; +EMPA10TA PO; +FURO20TA4 PO; +METO-395 PO; +NALT50TA5 PO; +SACU1TAB PO; +SPIR25TA PO
[2025-11-04 01:56] VITALS: BP 151/99; PULSE 95; RESP 16; TEMP 97.7; O2SAT 98
--- NOTE | 2025-11-04 02:04 | ELECTROCARDIOGRAPH REPORT ---
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
--- NOTE | 2025-11-04 02:10 | Physician Documentation ---
History of Present Illness ~ Chief Complaint: Shortness of Breath Stated Complaint: SHORT OF BREATH Time Seen by MD: 02:05 Primary Medical Doctor: None HPI This is a 55-year-old gentleman with a self-reported history of congestive heart failure presents for evaluation of difficulty breathing. He was discharged from our facility earlier today. 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 Denies any chest pain. Shortness a breath is both positional and exertional. He was not able to go to sleep. He states that he has difficulty urinating in the baseline therefore Lasix makes his life even more difficult. Medication Reconciliation Allergies: Coded Allergies: No Known Allergies (Unverified , 09/30/25) Scheduled Empagliflozin (Jardiance), 10 MG PO DAILY Furosemide (Furosemide), 1 TAB PO DAILY Metoprolol Succinate (Metoprolol Succinate), 25 MG PO DAILY Naltrexone Hcl (Naltrexone Hcl), 1 TAB PO DAILY Sacubitril/Valsartan (Entresto 24 mg-26 mg Tablet), 1 TABLET PO BID Spironolactone (Aldactone), 25 MG PO DAILY@0830 Discontinued Medications Benazepril HCl (Benazepril HCl), 2 TAB PO DAILY Discontinued Reason: patient no longer taking Ciprofloxacin HCl (Cipro), 2 TAB PO Q12H Discontinued Reason: patient no longer taking Home Med List (No Home Medications), (Reported) Past Medical History Past Medical History: Hypertension, Hernia, MRSA Abscess Past Surgical History: other Other Past Surgical History: Splenectomy Patient History: FH: CHF (congestive heart failure) Paternal grandmother Alcohol Use: None Drug Use: methamphetamine Lives In: Home Occupation: employed Review of Systems ROS 10 point review of systems was performed and unless noted above in HPI is negative for acute process/complaint. Physical Exam Vital Signs: Temperature: 97.7, Source: Temporal, Heart Rate: 95, Respiratory Rate: 16, BP: 151/99, Pulse Oximetry: 98, Weight: 66.000 Oxygen Flow Rate: 0 Physical Exam GENERAL: Awake, alert, oriented, GCS 15, no apparent distress, non-toxic appearing, answers questions, follows commands appropriately. Examined in triage HEENT: Atraumatic, normocephalic, pupils equal, extraocular muscles intact, sclerae anicteric, mucus membranes moist, oropharynx is clear, no stridor. NECK: supple, full active range of motion, trachea midline, no thyromegaly, no lymphadenopathy, no JVD. CARDIOVASCULAR: regular rate/rhythm, no murmurs/gallops/rubs, Pulses are 2+ in all extremities and symmetric. Capillary refill less than 2 seconds. PULMONARY: Nonlabored, good air movement ,no respiratory distress, speaking in full sentences, coarse breath sounds bilaterally, no wheezing, no ronchi, bilateral rales, no accessory muscle use. GASTROINTESTINAL: Soft, non-tender, non-distended, normal active bowel sounds, no organomegaly, no pulsatile masses, no CVA tenderness. NEUROLOGIC: Lucid with normal mental status. Normal facial symmetry. Moves all extremities symmetrically and with purpose. No truncal ataxia. Speech is fluid without evidence of dysarthria or aphasia, no focal deficits appreciated. MUSCULOSKELETAL: There is full range of motion of all extremities. There is no joint pain or joint swelling or joint erythema. There is no muscle pain or tenderness or swelling. EXTREMITIES: warm, well-perfused, no cyanosis, no clubbing, no edema, no acute deformities. Skin: warm, dry, no rashes or lesions, no jaundice, no petechiae orpurpura. No ecchymosis. PSYCHIATRIC: Normal affect, normal insight, normal concentration. Focused exam: [] Progress Results/Orders Results/Orders Orders - JAVIER MCMAHON DO Chest,Single View (11/04/25 01:59) Monitor (11/04/25 01:59) Saline Lock (11/04/25 01:59) Oxygen (11/04/25 01:59) Cbc/Diff (11/04/25 01:59) BMP (11/04/25 01:59) PBNP (11/04/25 01:59) Hs Troponin I W Calculations (11/04/25 01:59) Hs Troponin I W Calculations (11/04/25 03:59) Hs Troponin I W Calculations (11/04/25 04:59) Completed Orders - JAVIER MCMAHON DO Electrocardiogram (11/04/25 01:59) Vital Signs 11/04/25 01:56 Temp 97.7 Pulse 95 Resp 16 B/P (MAP) 151/99 Pulse Ox 98 O2 Flow Rate 0 EKG/XRAY/CT/US/VASC/MRI EKG : Additional Comment EKG was obtained and interpreted by myself shows sinus rhythm, rate of 93, normal MD interval, borderline QRS of 113, no QT prolongation, normal axis, no STEMI. Some mm ST-elevation in aVL only. There is a ST-depression in T-wave inversion in inferior lateral leads consistent with a LVH. Medical Decision Making Additional information obtaine: old records Findings Facility Status: ED Holds, RME process The plan was discussed with the patient, who demonstrates clear understanding of the plan and is in agreement with the plan unless otherwise noted in the chart. All questions have been answered, all concerns were addressed unless otherwise documented. I was available throughout their ED stay for frequent reassessment and questions. Differential Diagnoses (considered and possible or likely): [CHF exacerbation, medication noncompliance, less likely COPD, less likely ACS, unlikely PE, unlikely anemia, unlikely mitochondrial disease. No trauma reported, unlikely pneumothorax. COVID, influenza, RSV, bacterial pneumonia had also been considered.] ??Differential Diagnoses (considered and unlikely, not requiring evaluation currently): [See above] MDM Data Please see [facility] for the following: Independent Historians and external Records Review. Historian: [Patient] Independent Historians: ?[Record review. His echo from three days ago shows EF of 15-20%.] Medication Management: [Reviewed medication list] Social History and determinants: [Reviewed] Please see the body of the note for the following: Any independent interpretations of ECG, imaging studies. All vitals signs/haemodynamics, ordered tests were independently reviewed and interpreted by myself. Nursing triage complaint and vitals reviewed, additional nursing notes were reviewed as available and I agree unless otherwise noted or documented in contradiction in the chart Vital Signs: Independently reviewed Labs: Independently interpreted Imaging: Independently interpreted Old Medical Records: Independently reviewed, see HPI for relevant summary and information Pulse Oximetry: [95%] interpreted as [normal on room air] by me [Analytical Manager: [Regular Rate, Regular rhythm, no ectopy, NSR] reviewed and interpreted by me] Additionally notably showing: [] Tests considered but not ordered include: [] Social Determinants of Health Impact: Patient was evaluated in [facility] [place] access to healthcare due to below par ratio of patient to medical providers. [] Comorbid Conditions Impacting Present Evaluation and Care/Treatment: [] Management Discussions with other Healthcare Providers: [] Treatment and Disposition Medication Management (Given or considered): []. See EMR for details Consideration for Hospitalization/Escalation/Deescalation of Care: Admission for observation has been considered, [however the patient is able to tolerate p.o., their symptoms are controlled, they are able to rely on oral medications, and their chief complaint/diagnosis can be managed on outpatient basis.] ?ED Course:?[] ?Shared decision making:?[] Code status:?FULL Please see the full Electronic Medical Record for full details of nursing documentation, medications list, other records of complete past medical history and conditions, vital signs, laboratory studies, and any radiologic study interp retations by radiologists. Portions of this note were completed using [employer] dictation software and as a result there may exist minor errors in spelling. I have reviewed elements of past family and social history and agree as included in note. Departure Referrals: NO PRIMARY CARE PROVIDER (PCP) Signature Scribe Signature: No scribe Attestation: The note accurately reflects work and decisions made by me.Javier Mcmahon DO 11/04/25 02:12 JAVIER MCMAHON DO Nov 04, 2025 02:10
[2025-11-04 02:34] LABS: MEAN PLATELET VOLUME 8.8 FL (7.4-10.4)
[2025-11-04 02:36] LABS: RED CELL DISTRIBUTION WIDTH 15.7 % (11.5-14.5)
--- NOTE | 2025-11-04 02:46 | RADIOLOGY REPORT ---
CHEST RADIOGRAPH INDICATION: CP TECHNIQUE: Single frontal view of the chest was obtained COMPARISON: DI CHEST,SINGLE VIEW on DOS: 11/01/25 IMPRESSION: Heart appears prominent in size. The lungs appear clear without focal airspace opacity, effusion, or pneumothorax
[2025-11-04 02:52] LABS: CREATININE 1.68 MG/DL (0.60-1.10); PRO BRAIN NATRIURETIC PEPTIDE 1352 PG/ML (0-125); TOTAL CARBON DIOXIDE 25.6 MMOL/L (24-32); eCRCL 45 ML/MIN; eGFR 42 ML/MIN
[2025-11-04 03:00] LABS: PLATELET ESTIMATE NORMAL
[2025-11-04 03:01] LABS: LARGE PLATELETS FEW
== END 2025-11-04 04:04 | disposition left against medical advice (07) ==
LOC: ER 01:52
DX: R06.02 Shortness of breath (principal); I10 Essential (primary) hypertension; F15.90 Other stimulant use, unspecified, uncomplicated; Z90.81 Acquired absence of spleen; Z86.14 Personal history of Methicillin resistant Staphylococcus aureus infection; Z79.899 Other long term (current) drug therapy
CPT/HCPCS: 36415; 71045; 80048; 83880; 84484; 85008; 85025; 93005; 99285